=== PATIENT | male | born 1960 | race Caucasian/White ===

== ENCOUNTER 2018-11-30 05:33 | Day surgery (SDC) | payer BC ==
[~2018-11-30] VITALS: Ht 180.3 cm; Wt 119.5 kg
[~2018-11-30 05:33] MED LIST: HCTZ 25MG TAB25 MG PO
[2018-11-30 05:59] VITALS: BP 133/62; PULSE 99; TEMP 97.9
[2018-11-30] MEDS ORDERED: FLOMAX 0.40.4 MG/CAP PO ×2 (06:08→09:01)
[2018-11-30] MEDS ORDERED: CELEBREX 200MG200 MG PO (06:08)
[2018-11-30] MEDS ORDERED: GLUCOPHAGE XR500 M1 PO (06:09)
[2018-11-30] MEDS ORDERED: LIPITOR 40MG TA40 MG PO (06:10)
[2018-11-30] MEDS ORDERED: ASPIRIN 81M81 MG/TA2 PO (06:11)
[2018-11-30 08:45] VITALS: BP 133/80; PULSE 77
--- NOTE | 2018-11-30 08:45 | NUR ---
Patient returns to room 7 per cart from PACU and is awake and alert. IV fluids infusing and patient denies pain or nausea. Temp 97.9 and sats 95% on 2L per nasal cannual. States that he is needing up to the bathroom and ambulated across the hallway. Gait steady. Patient able to void pink tinged urine and returns to room. Siderails up x2 and call light in reach. Taking sips of water.
[2018-11-30 09:00] VITALS: BP 126/73; PULSE 80
[2018-11-30] MEDS ORDERED: CIPRO 500MG TA500 MG PO (09:00)
--- NOTE | 2018-11-30 09:00 | NUR ---
Resting and sipping on water.
[2018-11-30] MEDS ORDERED: NORCO 325 MG-51 TAB PO (09:01)
[2018-11-30 09:03] VITALS: TEMP 97.9
--- NOTE | 2018-11-30 09:15 | NUR ---
Patient sitting on edge of cart eating toast and denies pain or nausea. States that he does have some burning with urination. Denies need for pain medication.
[2018-11-30 09:16] VITALS: BP 128/73; PULSE 82
[2018-11-30 09:30] VITALS: BP 134/80; PULSE 88
--- NOTE | 2018-11-30 09:30 | NUR ---
IV discontinued and dresses self. Spouse in room.
--- NOTE | 2018-11-30 09:50 | NUR ---
Dismissal instructions signed and both patient and spouse verbalize understanding of these. Given scripts for Cipro, Flomax, and Bud. Instructed to take otc laxative to avoid constipation.
--- NOTE | 2018-11-30 09:55 | NUR ---
Patient dismissed to home driven by spouse and taken to the front door per wheelchair by Asha URBAN with instructions in hand.
== END 2018-11-30 09:55 | disposition home or self-care (01) ==
LOC: SDCO 05:33
DX: N20.0 Calculus of kidney (principal); I10 Essential (primary) hypertension; Z87.442 Personal history of urinary calculi; Z82.49 Family history of ischemic heart disease and other diseases of the circulatory system; Z88.0 Allergy status to penicillin; Z79.82 Long term (current) use of aspirin; Z79.899 Other long term (current) drug therapy; G47.33 Obstructive sleep apnea (adult) (pediatric); E11.9 Type 2 diabetes mellitus without complications; Z79.84 Long term (current) use of oral hypoglycemic drugs; E66.01 Morbid (severe) obesity due to excess calories
CPT/HCPCS: C1769; C2617; J0690; J1100; J2405; J2704; J3010; J7120; Q9967

== ENCOUNTER → 2019-08-22 | Outpatient (CLI) | payer BC ==
[~2019-08-22] MED LIST changes: +ASPIRIN 81M81 MG/TA2 PO; +CELEBREX 200MG200 MG PO; +CIPRO 500MG TA500 MG PO; +FLOMAX 0.40.4 MG/CAP PO; +GLUCOPHAGE XR500 M1 PO; +LIPITOR 40MG TA40 MG PO; +NORCO 325 MG-51 TAB PO
== END ==
LOC: COL.LAB 10:37
DX: Z01.812 Encounter for preprocedural laboratory examination (principal)

== ENCOUNTER 2020-12-20 05:29 | Inpatient (IN) | payer BC ==
[~2020-12-20] VITALS: Ht 180.3 cm; Wt 127.3 kg
[2020-12-20] VITALS (10 sets, daily range): BP systolic 120–153; BP diastolic 69–90; PULSE 64–100; TEMP 98–98.4
[2020-12-20 12:27] LABS: BASO % 0.3 % (0.0-2.0); EOS % 0.5 % (0-4.0); GRAN # 5.5 (1.4-6.5); GRAN % 62.2 % (42.2-75.2); HEMOGLOBIN 11.2 g/dl (13.5-18.0); LYMPH # 1.8 (1.2-3.4); LYMPH % 20.3 % (20.0-51.0); MEAN CELL VOLUME 92 fl (80.0-100.0); MEAN CORPUSCULAR HEMOGLOBIN 30 pg (27.0-31.0); MEAN CORPUSCULAR HGB CONC 32 g/dl (33.0-37.0); MEAN PLATELET VOLUME 9.9 fl (7.4-10.4); MONO # 1.4 (0.1-0.6); MONO % 15.9 % (1.7-9.3); PLATELET COUNT 274 K/mm3 (130-400); RED BLOOD COUNT 3.78 M/mm3 (4.20-5.60); REDCELL DISTRIBUTION WIDTH-CV 13.7 % (11.5-14.5)
[2020-12-20 12:30] LABS: HEMATOCRIT 34.9 % (42.0-52.0)
[2020-12-20 12:34] LABS: INR 1.3 (0.8-3.0); PROTHROMBIN TIME 14.1 SECONDS (9.7-12.8)
[2020-12-20 12:40] LABS: ALBUMIN 3.9 gm/dL (3.5-5.0); BILIRUBIN,TOTAL 0.6 mg/dL (0.0-1.0); C-REACTIVE PROTEIN 6.5 mg/dL (0.0-0.9); CALCIUM 8.5 mg/dL (8.4-10.2); CREATININE, serum 1.06 (0.66-1.25); POTASSIUM 4.7 mmol/L (3.4-5.0); TOTAL PROTEIN 7.8 gm/dL (6.4-8.2)
[2020-12-20 12:48] LABS: ERYTHROCYTE SEDIMENTATION RATE 101 mm/hr (0-30)
[2020-12-20] MEDS ORDERED: COZAAR 50MG50 MG/TAB PO (15:07)
[2020-12-20] MEDS ORDERED: CENTRUM SILVER1 CTB PO (15:09)
[2020-12-20] MEDS ORDERED: NATURE'S BLEND500 M1 PO (15:09)
--- NOTE | 2020-12-20 17:38 | NUR ---
Contacted Mary MONTOYA for Insulin orders and medicaiton orders.
--- NOTE | 2020-12-20 18:44 | NUR ---
Patient doing well throughout the day. Justin willard and SCDs to BLE. Patient denies pain at this time. Will report off to corporate driver.
--- NOTE | 2020-12-20 20:00 | NUR ---
Pt. sitting up in bed watching TV at this time. Pt. is A&OX3, assessment complete. INT to lt. ac patent. Pt. denies pain to rt. hip at this time. Call light within reach.
[2020-12-21 04:45] VITALS: BP 150/78; PULSE 90; TEMP 98.5
[2020-12-21 07:37] VITALS: BP 165/93; PULSE 98; TEMP 98.3
[2020-12-21 11:09] VITALS: BP 144/84; PULSE 94; TEMP 98
--- NOTE | 2020-12-21 14:26 | NUR ---
SW met with patient to complete intake. Patient states that he lives in [place] with Claudia [phone], does not utilize DME, and is independent with ADL's. Patient provides that his PCP is Dom, and pharmacy is [facility], does not have a DPOA-HC and does not wish to appoint anyone at this time. Patient states that he plans to return to his home up [place], and has no concerns with doing so. SW will continue to follow. DC plan: Home/[place]
[2020-12-21 15:47] VITALS: BP 144/84; PULSE 97; TEMP 98.3
[2020-12-21 15:59] LABS: COLLECTION METHOD CATHETER
[2020-12-21 16:06] LABS: MUCOUS Present /lpf; PH 5 (5-8); SQUAMOUS EPITHELIAL None Seen /hpf; URINE APPEARANCE Clear; URINE BACTERIA None Seen /hpf; URINE BILIRUBIN Negative (NEGATIVE); URINE BLOOD Negative (NEGATIVE); URINE COLOR Yellow; URINE GLUCOSE Negative (NEGATIVE); URINE KETONE Negative (NEGATIVE); URINE LEUKOCYTE ESTERASE Negative (NEGATIVE); URINE NITRATE Negative (NEGATIVE); URINE PROTEIN(semi-quant) Negative (NEGATIVE); URINE RBC None Seen /hpf; URINE UROBILINOGEN Negative (NEGATIVE)
--- NOTE | 2020-12-21 18:15 | NUR ---
Patient has been doing well today. He is aware he is NPO after midnight for surgery tomorrow. He took pain medication once today. Asked if he wanted something this evening he said no. No complaints of nausea. He stated his pain increases with movement. His has been at bedside. He had some labs and other tests done for pre-op work up. Hospitalist notified of consult. No other changes at this time. Call light within reach.
[2020-12-21 19:36] VITALS: BP 134/70; PULSE 104; TEMP 98.4
--- NOTE | 2020-12-21 19:50 | NUR ---
Pt. sitting up in bed. Pt. is A&OX3, assessment complete. INT to lt. ac patent. Pt. reports pain to rt. hip at a 5 on pain scale. Pt. denies further needs, call light within reach.
[2020-12-21 23:42] VITALS: BP 127/79; PULSE 91; TEMP 98.3
[2020-12-22] VITALS (10 sets, daily range): BP systolic 97–157; BP diastolic 47–86; PULSE 85–100; TEMP 97–98.3
[2020-12-22 06:32] LABS: CALCIUM 8.9 mg/dL (8.4-10.2); CREATININE, serum 0.91 (0.66-1.25); POTASSIUM 3.9 mmol/L (3.4-5.0)
[2020-12-22 06:34] LABS: BASO % 0.3 % (0.0-2.0); EOS # 0.2 (0.0-0.7); EOS % 2.4 % (0-4.0); GRAN # 6.1 (1.4-6.5); GRAN % 63.4 % (42.2-75.2); HEMOGLOBIN 11.4 g/dl (13.5-18.0); LYMPH # 1.7 (1.2-3.4); LYMPH % 17.2 % (20.0-51.0); MEAN CELL VOLUME 95 fl (80.0-100.0); MEAN CORPUSCULAR HEMOGLOBIN 30 pg (27.0-31.0); MEAN CORPUSCULAR HGB CONC 31 g/dl (33.0-37.0); MEAN PLATELET VOLUME 10.1 fl (7.4-10.4); MONO # 1.5 (0.1-0.6); MONO % 15.6 % (1.7-9.3); PLATELET COUNT 264 K/mm3 (130-400); RED BLOOD COUNT 3.84 M/mm3 (4.20-5.60); REDCELL DISTRIBUTION WIDTH-CV 13.9 % (11.5-14.5)
[2020-12-22 06:35] LABS: HEMATOCRIT 36.6 % (42.0-52.0)
--- NOTE | 2020-12-22 08:20 | NUR ---
Patient in bed resting. Alert and oriented x 3. Assessment complete. Denies pain at this time. Justin hose and SCDS to BLE. Denies additional needs at this time.
--- NOTE | 2020-12-22 12:59 | NUR ---
Initial visit; Patient and his thanked Head Of Quality for looking in on Sancho and offering encouragement, God's blessings and prayer. Head Of Quality will follow up.
--- NOTE | 2020-12-22 13:50 | NUR ---
Patient to OR by bed.
--- NOTE | 2020-12-22 18:46 | NUR ---
Reported off to district director.
[2020-12-22 21:30] LABS: HEMATOCRIT 31.9 % (42.0-52.0); HEMOGLOBIN 10.1 g/dl (13.5-18.0)
--- NOTE | 2020-12-22 22:00 | NUR ---
Arrived on unit from PACU, report received from Sallie QUILES PACU, patient is awake, alert, oriented x 4, drowsy, VS stable, CPAP put on by RT, tolerating well, Dressing to R hip c/d/i, patient c/o being cool- heated room and heated blankets applied, MYRANDA hose and SCDs in use, abductor pillow in use, bilateral pedal pulses WNL, ford draining yellow urine to bag per gravity, updated patient on plan of care.
[2020-12-23] VITALS (8 sets, daily range): BP systolic 77–127; BP diastolic 44–67; PULSE 88–112; TEMP 97.7–98.6
[2020-12-23 06:43] LABS: MEAN CELL VOLUME 94 fl (80.0-100.0); MEAN CORPUSCULAR HGB CONC 32 g/dl (33.0-37.0); MEAN PLATELET VOLUME 10.2 fl (7.4-10.4); PLATELET COUNT 220 K/mm3 (130-400); RED BLOOD COUNT 3.11 M/mm3 (4.20-5.60); REDCELL DISTRIBUTION WIDTH-CV 14.3 % (11.5-14.5)
[2020-12-23 06:49] LABS: HEMATOCRIT 29.3 % (42.0-52.0); HEMOGLOBIN 9.3 g/dl (13.5-18.0); MEAN CORPUSCULAR HEMOGLOBIN 30 pg (27.0-31.0)
[2020-12-23 06:59] LABS: CALCIUM 7.5 mg/dL (8.4-10.2); CREATININE, serum 1.25 (0.66-1.25); POTASSIUM 4.4 mmol/L (3.4-5.0)
[2020-12-23 07:45] LABS: BAND 25 % (0-10); EOSINOPHIL 1 % (0-4); LYMPHOCYTE 16 % (20.0-51.0); METAMYELOCYTE 1 % (0-0); NEUTROPHILS 45 % (42.0-75.2)
[2020-12-23 07:46] LABS: PLATELET ESTIMATE NORMAL (NORMAL)
--- NOTE | 2020-12-23 08:44 | NUR ---
Maryann whitman for picc line placement
--- NOTE | 2020-12-23 09:53 | NUR ---
Patient in bed resting. Alert and oriented x 3. Assessment complete. States pain 8/10 since working with PT. Medications given per orders. PICC line placed to PRISCILLA. Fluids infusing at this time. Justin willard and SCDS to BLE. Denies further needs at this time.
--- NOTE | 2020-12-23 12:30 | NUR ---
PATIENT NOTED HYPOTENSION IN THE 70'S SYSTOLIC, B/P CHECKED 4 TIMES. HOB LOWERED. PATIENT IS PALE IN COLOR AND REPORTS HE RECENTLY SAT AT THE EDGE OF BED AND GOT DIZZY. RN NOTIFIED.
--- NOTE | 2020-12-23 13:44 | NUR ---
Notified Isaura MONTOYA of continued low BP, additional fluid bolus ordered and initiated.
--- NOTE | 2020-12-23 18:10 | NUR ---
Patient doing well this afternoon. Repositioned in bed as patient tolerated. Abductor remains in place while patient in bed. Fluids continue infusing per orders. Denies needs at this time. Will report off to gas load dispatcher.
[2020-12-24] VITALS (7 sets, daily range): BP systolic 97–143; BP diastolic 51–71; PULSE 65–111; TEMP 97.7–99.2
--- NOTE | 2020-12-24 05:19 | NUR ---
Resting quietly, no s/s of hypo/hyper glycemia, VS stable, dressing to R hip c/d/i. NWB to R leg, updated on plan of care.
[2020-12-24 05:53] LABS: MEAN CELL VOLUME 92 fl (80.0-100.0); MEAN CORPUSCULAR HGB CONC 32 g/dl (33.0-37.0); MEAN PLATELET VOLUME 10.6 fl (7.4-10.4); PLATELET COUNT 192 K/mm3 (130-400); RED BLOOD COUNT 2.76 M/mm3 (4.20-5.60); REDCELL DISTRIBUTION WIDTH-CV 14.2 % (11.5-14.5)
[2020-12-24 05:55] LABS: HEMATOCRIT 25.4 % (42.0-52.0); HEMOGLOBIN 8.1 g/dl (13.5-18.0); MEAN CORPUSCULAR HEMOGLOBIN 29 pg (27.0-31.0)
[2020-12-24 06:06] LABS: CALCIUM 7.8 mg/dL (8.4-10.2); CREATININE, serum 1.01 (0.66-1.25); POTASSIUM 3.9 mmol/L (3.4-5.0)
[2020-12-24 06:17] LABS: BAND 2 % (0-10); EOSINOPHIL 3 % (0-4); LYMPHOCYTE 20 % (20.0-51.0); NEUTROPHILS 59 % (42.0-75.2); PLATELET ESTIMATE NORMAL (NORMAL)
--- NOTE | 2020-12-24 07:00 | NUR ---
Report received from KB Molina. PT in bed resting, denies needs, will continue to monitor.
--- NOTE | 2020-12-24 08:50 | NUR ---
Pt has large aquacels to R hip that have some drainage. PICC to PRISCILLA with IVF nad antibiotics infusing. Denies pain. In chair with assistance of PT and able to maintain NWB status to RLE. Elvas needs, eating well.02 at 2L NC. Will continue to monitor.
--- NOTE | 2020-12-24 09:48 | NUR ---
Follow-up visit; Patient thanked Marketing Communications Coordinator for looking in on him and wishing him a good day.
--- NOTE | 2020-12-24 10:28 | NUR ---
PT is recommending SNF or SB. The patient has [facility]. SW met with the patient to review d/c plan and to discuss PT's recommendation. The patient reports that that she lives in [place] with his , Nova. The patient reports that he would be interested in post-acute rehab and would prefer IPR. He was open for SW to send a referral to [facility]. JIMMY consulted IPR director, Leeann. JIMMY faxed a referral to Paulina at [facility]. Awaiting screens. JIMMY attempted to contact the patient's , Nova, to update. The phone number would not ring.
--- NOTE | 2020-12-24 16:00 | NUR ---
The patient's , Nova, returned JIMMY's phone call. JIMMY updated Nova about therapy's recommendation for rehab and how JIMMY sent referrals to our [facility] and [facility]. Nova was in agreement to rehab. She states that she would prefer a local facility and was interested in JIMMY sending a referral to [facility]. JIMMY contacted and faxed a referral to Law at [facility]. Law reports that [facility] does not have any skilled benefits and that they will have to decline the patient. JIMMY to update the patient and his .
--- NOTE | 2020-12-24 18:06 | NUR ---
Pt has rested off and on most of afternoon. PRN pain meds given per request over shift. REsting in bed, denies needs, taking PO well. Will give bedisde shift report to nightshift nurse who will resume care.
--- NOTE | 2020-12-24 19:00 | NUR ---
RECEIVED CHANGE OF SHIFT REPORT FROM DAY SHIFT NURSE.
[2020-12-25] VITALS (14 sets, daily range): BP systolic 104–151; BP diastolic 46–91; PULSE 22–125; TEMP 97.7–98.9
--- NOTE | 2020-12-25 | NUR ---
PATIENT SLEEPING, DOES NOT WAKE WHEN STAFF NURSE ENTER ROOM ON ROUNDS. PICC IN PLACE, SALINE LOCKED. OXYGEN PER NC. DENIED CHEST PAIN/SOA. DENIED NUMBNESS/TINGLING TO EXTREMITIES. WORE SCDs FOR ABOUT AN HOUR THEN WANTED SCDs OFF SO FAR THIS SHIFT.
--- NOTE | 2020-12-25 07:25 | NUR ---
CHANGE OF SHIFT GIVEN TO DAY SHIFT NURSE, JULIA QUILES. PATIENT VOMITED SEVERAL TIMES OF SMALL MUCOUS LIKE BROWNISH EMESIS THAT WAS NOT RESOLVED WITH ZOFRAN. MENDING CARRIER PROVIDER INFORMED OF UNRESOLVED N/V WITH ORDER GIVEN. PHENERGAN INFUSION GIVEN PER PICC.
[2020-12-25 07:26] LABS: MEAN CELL VOLUME 93 fl (80.0-100.0); MEAN CORPUSCULAR HGB CONC 32 g/dl (33.0-37.0); MEAN PLATELET VOLUME 10.7 fl (7.4-10.4); PLATELET COUNT 254 K/mm3 (130-400); RED BLOOD COUNT 2.58 M/mm3 (4.20-5.60)
[2020-12-25 07:33] LABS: CALCIUM 8.2 mg/dL (8.4-10.2); CREATININE, serum 0.89 (0.66-1.25); POTASSIUM 3.8 mmol/L (3.4-5.0)
[2020-12-25 07:34] LABS: HEMATOCRIT 23.9 % (42.0-52.0); HEMOGLOBIN 7.7 g/dl (13.5-18.0); MEAN CORPUSCULAR HEMOGLOBIN 30 pg (27.0-31.0)
[2020-12-25 07:44] LABS: C-REACTIVE PROTEIN 15.9 mg/dL (0.0-0.9)
[2020-12-25 08:05] LABS: GASTROCCULT POSITIVE; pH GASTRIC CONTENTS 1
[2020-12-25 09:07] LABS: LYMPHOCYTE 5 % (20.0-51.0); METAMYELOCYTE 2 % (0-0); MYELOCYTE 2 % (0-0); NEUTROPHILS 79 % (42.0-75.2); PLATELET ESTIMATE NORMAL (NORMAL)
[2020-12-25 09:08] LABS: HYPOCHROMIA 2+
--- NOTE | 2020-12-25 11:30 | NUR ---
While getting shift report this am at 0700 patient was vomiting dark brown/red emesis. Night RN had reported this to overnight hospitalist. Spoke with the hospitalist this am and sent emesis for gastroccult. Dr Berry has been consulted and patient is going for EGD. He has been vomiting every 30-45 mins and is dry heaving. The emesis is getting nutrition coordinator. Notified his of the situation. IVF's sent as ordered. Consent signed and on the chart. Patient is going off the floor via bed. No other changes at this time.
--- NOTE | 2020-12-25 12:45 | NUR ---
Patient is back from his procedure. NG tube in place. NG to LIS as ordered. Dark brown contents returned. Patients denies nausea at this time. Stated his pain is minimal. He wanted me to update his again. explained he can not eat or drink but can have sips of water to moisten his mouth. No other changes at this time. Call light within reach.
[2020-12-25 13:20] LABS: HEMATOCRIT 22.4 % (42.0-52.0); HEMOGLOBIN 7.5 g/dl (13.5-18.0)
--- NOTE | 2020-12-25 18:30 | NUR ---
Patient is doing better this afternoon. His NG continues to be hooked up to LIS. Light brown content returned. IVF's infusing as ordered. Patient denies nausea. Minimal complaints of pain to right hip. MYRANDA willard and SCD's on to BLE. Oral pills on hold at this time. No other changes at this time. Call jerry garcia.
--- NOTE | 2020-12-25 20:19 | NUR ---
Noted pulse of 125, Call placed to Ashley Dobson EDITOR TRADE JOURNAL to notify, NON: EKG now, initiate telemetry. Updated patient on plan of care.
--- NOTE | 2020-12-25 20:30 | NUR ---
Call placed to Ashley Dobson FAN ENGINE ENGINEER- reviewed EKG results, NON: H&H now. Updated patient
[2020-12-25 20:59] LABS: HEMATOCRIT 23.2 % (42.0-52.0); HEMOGLOBIN 7.2 g/dl (13.5-18.0)
[2020-12-26] VITALS (9 sets, daily range): BP systolic 116–142; BP diastolic 52–64; PULSE 66–114; TEMP 97.9–99.1
--- NOTE | 2020-12-26 04:19 | NUR ---
Resting quietly, no c/o pain, uses urinal w/o issue, no s/s of hypo/hyper glycemia, NG tube to LIS with brown drainage, VS stable, tachy on tele at 114, will continue to monitor.
[2020-12-26 07:05] LABS: MEAN CELL VOLUME 96 fl (80.0-100.0); MEAN CORPUSCULAR HGB CONC 32 g/dl (33.0-37.0); MEAN PLATELET VOLUME 10.7 fl (7.4-10.4); PLATELET COUNT 255 K/mm3 (130-400); RED BLOOD COUNT 2.24 M/mm3 (4.20-5.60); REDCELL DISTRIBUTION WIDTH-CV 14.4 % (11.5-14.5)
[2020-12-26 07:18] LABS: HEMATOCRIT 21.6 % (42.0-52.0); HEMOGLOBIN 6.8 g/dl (13.5-18.0); MEAN CORPUSCULAR HEMOGLOBIN 30 pg (27.0-31.0)
[2020-12-26 07:29] LABS: CALCIUM 8.3 mg/dL (8.4-10.2); CREATININE, serum 0.87 mg/dL (0.72-1.25); POTASSIUM 3.7 mmol/L (3.5-4.5)
[2020-12-26 07:53] LABS: BAND 25 % (0-10); LYMPHOCYTE 9 % (20.0-51.0); MYELOCYTE 1 % (0-0); NEUTROPHILS 52 % (42.0-75.2); NUCLEATED RED BLOOD CELL 1 (0-6)
[2020-12-26 07:54] LABS: HYPOCHROMIA 2+
[2020-12-26 07:55] LABS: PLATELET ESTIMATE NORMAL (NORMAL)
--- NOTE | 2020-12-26 08:46 | NUR ---
Vancomycin Follow-up Pharmacy Note Current regimen: VANCOMYCIN 1.5 G Q12H Vancomycin trough: 8 Adjustments: INCREASE TO 1.75G Q12H. PT WITH OBESITY AND PRE-DM, INCREASE SLOWLY DUE TO RISK OF ACCUMULATION
--- NOTE | 2020-12-26 11:30 | NUR ---
Ortho plans to take the patient back to the OR for a procedure next Tuesday. JIMMY notified Leeann with [facility] and Paulina at [facility].
--- NOTE | 2020-12-26 12:38 | NUR ---
Blood transfusion initiated per orders. This nurse remained in for for initial 15 minutes of transfusion. VSS. Bed bath provided at this time. Denies further needs at this time.
--- NOTE | 2020-12-26 13:38 | NUR ---
Patient sitting up in recliner. Denies pain or needs at this time.
[2020-12-26 16:26] LABS: HEMATOCRIT 24.1 % (42.0-52.0); HEMOGLOBIN 7.7 g/dl (13.5-18.0)
--- NOTE | 2020-12-26 19:20 | NUR ---
Patient doing well throughout the day. Has been up to recliner for lunch. Transfered back to bed with x2 assist and walker. Dressing to right hip changed to new aquacell dressing. Denies needs at this time. Will report off to manufacturing shift supervisor.
--- NOTE | 2020-12-27 02:47 | NUR ---
Patient changed and cleaned, linens changed, secured NG tube w/o issue, removed leodan hose and currently has SCDs in use, call chavez w/i reach, BLE elevated, dressing to R hip c/d/i with drainage noted under aquacell, telemetry patches changed, O2@3L per oxymask, patient denies pain, will continue to monitor.
[2020-12-27 04:08] VITALS: BP 135/60; PULSE 66; TEMP 98.9
[2020-12-27 07:16] LABS: MEAN CELL VOLUME 93 fl (80.0-100.0); MEAN CORPUSCULAR HGB CONC 31 g/dl (33.0-37.0); MEAN PLATELET VOLUME 10.3 fl (7.4-10.4); PLATELET COUNT 235 K/mm3 (130-400); RED BLOOD COUNT 2.47 M/mm3 (4.20-5.60); REDCELL DISTRIBUTION WIDTH-CV 15.3 % (11.5-14.5)
[2020-12-27 07:21] LABS: HEMOGLOBIN 7.2 g/dl (13.5-18.0); MEAN CORPUSCULAR HEMOGLOBIN 29 pg (27.0-31.0)
[2020-12-27 07:32] VITALS: BP 138/64; PULSE 106; TEMP 98.5
[2020-12-27 07:38] LABS: CALCIUM 8.5 mg/dL (8.4-10.2); CREATININE, serum 0.79 mg/dL (0.72-1.25); POTASSIUM 3.7 mmol/L (3.5-4.5)
--- NOTE | 2020-12-27 08:00 | NUR ---
Patient in bed resting. Alert and oriented x 3. Assessment complete. Denies pain at this time. NG to LIS with yellow drainage present. Aquacell to right hip with bloody drainage present. PICC line to PRISCILLA without complications. x2 assist to recliner. Patient denies further needs at this time.
[2020-12-27 11:37] VITALS: BP 137/64; PULSE 101; TEMP 98.8
[2020-12-27 15:11] VITALS: BP 144/59; PULSE 102; TEMP 98.9
--- NOTE | 2020-12-27 16:06 | NUR ---
Contacted Dr. Benítez, patient NG clamped for 4 hrs, residual of 10 ml. Ok to advance to CL diet.
--- NOTE | 2020-12-27 18:25 | NUR ---
Patient doing well throughout the day. Denies pain at this time. Up to recliner this AM. Fluids infusing per orders to PRISCILLA PICC line. Aquacell dressing to right hip saturated. Placed abds and foam tape dressing. Patient denies needs at this time. Will repor toff to livestock farmworker.
[2020-12-27 20:32] VITALS: BP 148/68; PULSE 104; TEMP 98.7
[2020-12-28] VITALS (15 sets, daily range): BP systolic 120–155; BP diastolic 58–96; PULSE 84–106; TEMP 97.6–99
--- NOTE | 2020-12-28 06:14 | NUR ---
LAB DRAWN FROM [facility]. NO REQUESTS FOR PRN PAIN MEDICATION. RESTING QUIETLY, CALL LIGHT IN REACH.
[2020-12-28 07:19] LABS: MEAN CELL VOLUME 96 fl (80.0-100.0); MEAN CORPUSCULAR HGB CONC 31 g/dl (33.0-37.0); MEAN PLATELET VOLUME 10.7 fl (7.4-10.4); PLATELET COUNT 252 K/mm3 (130-400); RED BLOOD COUNT 2.41 M/mm3 (4.20-5.60); REDCELL DISTRIBUTION WIDTH-CV 15.2 % (11.5-14.5)
[2020-12-28 07:27] LABS: HEMATOCRIT 23.1 % (42.0-52.0); HEMOGLOBIN 7.2 g/dl (13.5-18.0); MEAN CORPUSCULAR HEMOGLOBIN 30 pg (27.0-31.0)
[2020-12-28 07:38] LABS: CALCIUM 8.1 mg/dL (8.4-10.2); CREATININE, serum 0.74 mg/dL (0.72-1.25); POTASSIUM 3.5 mmol/L (3.5-4.5)
[2020-12-28 09:19] LABS: ANISOCYTOSIS 1+; BAND 1 % (0-10); HYPOCHROMIA 2+; LYMPHOCYTE 16 % (20.0-51.0); NEUTROPHILS 65 % (42.0-75.2); PLATELET ESTIMATE NORMAL (NORMAL)
--- NOTE | 2020-12-28 19:15 | NUR ---
RECEIVED CHANGE OF SHIFT REPORT FROM DAY SHIFT NURSE. TELE AND PICC LINE IN PLACE. PATIENT TOLERATING FULL LIQUID DIET AT THIS TIME. PATIENT CONTINUES WITH DECREASED ROM/STRENGTH TO RLE DUE TO RECENT HIP SURGERY, SCHEDULED TO HAVE ANOTHER SPACER PLACED TO R HIP AREA THIS COMING TUESDAY. PATIENT DENIES ANY NEEDS AT TIME OF REPORT. DENIES CHEST PAIN/SOA AND DENIES NUMBNESS/TINGLING TO EXTREMITIES AT THIS TIME.
[2020-12-29] VITALS (10 sets, daily range): BP systolic 123–161; BP diastolic 53–77; PULSE 86–97; TEMP 98.1–98.9
--- NOTE | 2020-12-29 00:30 | NUR ---
BLOOD TRANSFUSING WITH NO PRBLEMS OR COMPLAINTS. DENIES CHEST PAIN/SOA/LOW BACK PAIN. IV SITE REMAINS CLEAR, PATIENT'S SKIN COLOR NORMAL/ LIPS PINK. PATIENT SATURATIONS DROPS WITH SLEEPING, OXYGEN PER NC AT 1LPM AT THIS TIME. BLOOD TRANSFUSION RATE INCREASED TO 100ML/HR AT THIS TIME.
--- NOTE | 2020-12-29 02:34 | NUR ---
BLOOD TRANSFUSING WITH NO COMPLAINTS OF CHEST PAIN/SOA/CHILLS/LOW BACK PAIN/ABD PAIN/NAUSEA WITH TRANSFUSION AT THIS TIME. OXYGEN CONTINUES PER NASAL CANNULA AT 1 LPM.
[2020-12-29 06:56] LABS: MEAN CORPUSCULAR HGB CONC 33 g/dl (33.0-37.0); MEAN PLATELET VOLUME 10.4 fl (7.4-10.4); PLATELET COUNT 251 K/mm3 (130-400); RED BLOOD COUNT 2.92 M/mm3 (4.20-5.60); REDCELL DISTRIBUTION WIDTH-CV 15.1 % (11.5-14.5)
[2020-12-29 06:59] LABS: HEMATOCRIT 26.7 % (42.0-52.0); HEMOGLOBIN 8.7 g/dl (13.5-18.0); MEAN CELL VOLUME 91 fl (80.0-100.0); MEAN CORPUSCULAR HEMOGLOBIN 30 pg (27.0-31.0)
--- NOTE | 2020-12-29 07:22 | NUR ---
CHANGE OF SHIFT REPORT GIVEN TO DAY SHIFT NURSE, JULIA QUILES.
[2020-12-29 07:27] LABS: CREATININE, serum 0.74 mg/dL (0.72-1.25); POTASSIUM 3.2 mmol/L (3.5-4.5)
[2020-12-29 07:40] LABS: BAND 18 % (0-10); EOSINOPHIL 4 % (0-4); LYMPHOCYTE 14 % (20.0-51.0); METAMYELOCYTE 2 % (0-0); MYELOCYTE 5 % (0-0); NEUTROPHILS 48 % (42.0-75.2); NUCLEATED RED BLOOD CELL 1 (0-6)
[2020-12-29 07:41] LABS: HYPOCHROMIA 1+; MICROCYTOSIS 1+; PLATELET ESTIMATE NORMAL (NORMAL)
--- NOTE | 2020-12-29 18:44 | NUR ---
Patient has been doing well today. Minimal complaints of pain, no complaints of nausea. He sat up in the chair for a short while this morning but did not tolerate it for long. He is aware he can not eat or drink after midnight. He had a very small BM this morning, there was some dark red old blood in his stool. He asked about it, explained that it is from the GI bleed he had last week. He verbalized understanding. No other changes at this time. Call light within reach.
--- NOTE | 2020-12-29 18:45 | NUR ---
RECEIVED CHANGE OF SHIFT REPORT FROM DAY SHIFT NURSE.
--- NOTE | 2020-12-29 22:19 | NUR ---
REFUSED SCHEDULED TYLENOL EXTRA STRENGTH, REPORTS STILL HAS NO PAIN AT THIS TIME.
[2020-12-30] VITALS (16 sets, daily range): BP systolic 98–151; BP diastolic 53–93; PULSE 86–110; TEMP 97.9–99.3
--- NOTE | 2020-12-30 00:01 | NUR ---
HAD WORN SCD FOR SHORT PERIOD OF TIME PRIOR TO HS CARE AND DOES NOT WEAR MYRANDA DUE TO NO SIZE THAT FITS PATIENT.
--- NOTE | 2020-12-30 06:49 | NUR ---
CHANGE OF SHIFT REPORT GIVEN TO DAY SHIFT NURSE, BRISA QUILES.
[2020-12-30 07:29] LABS: CALCIUM 7.8 mg/dL (8.4-10.2); CREATININE, serum 0.74 mg/dL (0.72-1.25); POTASSIUM 3.5 mmol/L (3.5-4.5)
[2020-12-30 07:39] LABS: MEAN CELL VOLUME 92 fl (80.0-100.0); MEAN CORPUSCULAR HGB CONC 32 g/dl (33.0-37.0); MEAN PLATELET VOLUME 10.6 fl (7.4-10.4); PLATELET COUNT 213 K/mm3 (130-400); RED BLOOD COUNT 3.01 M/mm3 (4.20-5.60); REDCELL DISTRIBUTION WIDTH-CV 14.9 % (11.5-14.5)
[2020-12-30 07:53] LABS: HEMATOCRIT 27.8 % (42.0-52.0); HEMOGLOBIN 8.9 g/dl (13.5-18.0); MEAN CORPUSCULAR HEMOGLOBIN 30 pg (27.0-31.0)
--- NOTE | 2020-12-30 08:00 | NUR ---
Patient in bed resting. Alert and oriented x 3. Assessment complete. Denies pain at this time. Dressing to right hip changed at this time. Bed bath provided. PICC to PRISCILLA without complications. Denies further needs at this time.
[2020-12-30 08:23] LABS: BAND 9 % (0-10); EOSINOPHIL 2 % (0-4); LYMPHOCYTE 9 % (20.0-51.0); METAMYELOCYTE 2 % (0-0); NEUTROPHILS 59 % (42.0-75.2); PLATELET ESTIMATE NORMAL (NORMAL)
--- NOTE | 2020-12-30 08:30 | NUR ---
Patient to OR by bed.
--- NOTE | 2020-12-30 14:25 | NUR ---
The patient went back to surgery today. IPR is following. SW to continue to follow.
--- NOTE | 2020-12-30 18:51 | NUR ---
RECEIVED CHANGE OF SHIFT REPORT FROM DAY SHIFT NURSE. BLOOD TRANSFUSING WITH NO PROBLEMS. DENIES CHEST PAIN/SOA,
[2020-12-31 03:40] VITALS: BP 116/62; PULSE 103; TEMP 98
--- NOTE | 2020-12-31 07:28 | NUR ---
CHANGE OF SHIFT REPORT GIVEN TO DAY SHIFT NURSE, DULCE QUILES.
[2020-12-31 08:00] VITALS: BP 132/58; PULSE 105; TEMP 98.4
[2020-12-31 08:48] LABS: MEAN CELL VOLUME 93 fl (80.0-100.0); MEAN CORPUSCULAR HGB CONC 32 g/dl (33.0-37.0); MEAN PLATELET VOLUME 10.5 fl (7.4-10.4); PLATELET COUNT 222 K/mm3 (130-400); RED BLOOD COUNT 3.09 M/mm3 (4.20-5.60); REDCELL DISTRIBUTION WIDTH-CV 16.4 % (11.5-14.5)
[2020-12-31 08:49] LABS: HEMATOCRIT 28.6 % (42.0-52.0); MEAN CORPUSCULAR HEMOGLOBIN 29 pg (27.0-31.0)
[2020-12-31 09:11] LABS: CALCIUM 7.3 mg/dL (8.4-10.2); CREATININE, serum 0.74 mg/dL (0.72-1.25)
[2020-12-31 09:22] LABS: BAND 11 % (0-10); EOSINOPHIL 4 % (0-4); LYMPHOCYTE 10 % (20.0-51.0); MYELOCYTE 2 % (0-0); NEUTROPHILS 63 % (42.0-75.2)
[2020-12-31 09:23] LABS: HYPOCHROMIA 1+; PLATELET ESTIMATE NORMAL (NORMAL)
[2020-12-31 11:05] VITALS: BP 132/60; PULSE 108; TEMP 98.3
--- NOTE | 2020-12-31 14:56 | NUR ---
Leeann, IPR Director, reports that she submitted for auth and has received authorization from the patient's insurance. JIMMY met with the patient to update. The patient is in agreement to going to [facility] upon discharge. SW attempted to contact and update his , Nova. Nova's voicemail is full and SW was unable to leave a message.
[2020-12-31 15:43] VITALS: BP 104/51; PULSE 109; TEMP 97.9
[2020-12-31 19:53] VITALS: BP 119/59; PULSE 79; TEMP 98
--- NOTE | 2020-12-31 20:00 | NUR ---
Pt. sitting up in bed at this time. Pt. is A&OX3, assessment complete. PICC to rt. upper arm patent. Pt. denies further needs, call light within reach.
[2020-12-31 23:21] VITALS: BP 128/60; PULSE 56; TEMP 98.4
[2021-01-01 03:28] VITALS: BP 122/60; PULSE 66; TEMP 98
--- NOTE | 2021-01-01 06:48 | NUR ---
Patient sleeping comfortably in bed. Call light and bedside table are within reach. Will continue to monitor patient throughout shift.
[2021-01-01 06:54] LABS: MEAN CELL VOLUME 94 fl (80.0-100.0); MEAN CORPUSCULAR HGB CONC 31 g/dl (33.0-37.0); MEAN PLATELET VOLUME 10.8 fl (7.4-10.4); PLATELET COUNT 250 K/mm3 (130-400); RED BLOOD COUNT 3.03 M/mm3 (4.20-5.60); REDCELL DISTRIBUTION WIDTH-CV 16.2 % (11.5-14.5)
[2021-01-01 06:58] LABS: HEMATOCRIT 28.6 % (42.0-52.0); HEMOGLOBIN 8.9 g/dl (13.5-18.0); MEAN CORPUSCULAR HEMOGLOBIN 29 pg (27.0-31.0)
[2021-01-01 07:27] VITALS: BP 125/52; PULSE 95; TEMP 97.7
--- NOTE | 2021-01-01 07:30 | NUR ---
Per JAN Villar. this nurse changed dressing and put on an aquacell. Ford were in tact with some drops of blood proximal to wound. Patient tolerated dressing change well. Patient has edema wilthh pitting to RLE with +1 pitting. Patient denies pain at this time. Call light and bedside table are within reach. Will continue to monitor patient at this time.
[2021-01-01 07:36] LABS: CALCIUM 7.8 mg/dL (8.4-10.2); CREATININE, serum 0.86 mg/dL (0.72-1.25)
[2021-01-01 07:53] LABS: BAND 11 % (0-10); EOSINOPHIL 1 % (0-4); LYMPHOCYTE 9 % (20.0-51.0); METAMYELOCYTE 2 % (0-0); MYELOCYTE 2 % (0-0); NEUTROPHILS 68 % (42.0-75.2)
[2021-01-01 07:55] LABS: HYPOCHROMIA 2+; PLATELET ESTIMATE NORMAL (NORMAL)
[2021-01-01 11:23] VITALS: BP 123/52; PULSE 104; TEMP 98.4
[2021-01-01 18:46] VITALS: BP 138/120; PULSE 110; TEMP 98
--- NOTE | 2021-01-01 21:20 | NUR ---
Pt. sitting up in bed. Pt. is A&OX3, assessment complete. PICC to rt. upper arm patent. Dressing to rt. hip CDI. Pt. denies pain or other needs, call light within reach.
[2021-01-01 23:21] VITALS: BP 120/63; PULSE 69; TEMP 97.9
[2021-01-02 06:48] LABS: MEAN CELL VOLUME 93 fl (80.0-100.0); MEAN CORPUSCULAR HGB CONC 31 g/dl (33.0-37.0); MEAN PLATELET VOLUME 10.6 fl (7.4-10.4); PLATELET COUNT 292 K/mm3 (130-400); RED BLOOD COUNT 2.96 M/mm3 (4.20-5.60)
[2021-01-02 06:55] LABS: HEMATOCRIT 27.6 % (42.0-52.0); HEMOGLOBIN 8.5 g/dl (13.5-18.0); MEAN CORPUSCULAR HEMOGLOBIN 29 pg (27.0-31.0)
[2021-01-02 07:06] LABS: CALCIUM 7.8 mg/dL (8.4-10.2); POTASSIUM 3.8 mmol/L (3.5-4.5)
--- NOTE | 2021-01-02 08:00 | NUR ---
Patient in bed resting. Alert and oriented x 3. Assessment complete. Denies pain at this time. Aquacell dressing to right hip with moderate drainage present. PICC line to PRISCILLA without complications. Patient denies further needs at this time.
[2021-01-02 08:02] LABS: BAND 11 % (0-10); EOSINOPHIL 1 % (0-4); HYPOCHROMIA 3+; LYMPHOCYTE 7 % (20.0-51.0); METAMYELOCYTE 1 % (0-0); MYELOCYTE 1 % (0-0); NEUTROPHILS 76 % (42.0-75.2); PLATELET ESTIMATE NORMAL (NORMAL)
[2021-01-02 09:13] VITALS: BP 121/60; PULSE 104; TEMP 98.2
[2021-01-02] MEDS ORDERED: ROCEPHIN 2GM VIAL21 IV (09:20)
[2021-01-02] MEDS ORDERED: VANCO 2 GR2 GM/500 M IV (09:21)
[2021-01-02] MEDS ORDERED: BIAXIN 500MG T500 MG PO (09:21)
[2021-01-02] MEDS ORDERED: AMOXICILLIN 50500 MG PO (09:21)
[2021-01-02] MEDS ORDERED: PROTONIX 40MG T40 MG PO (09:22)
[2021-01-02] MEDS ORDERED: MILK OF MA1200 MG/5 PO (09:22)
[2021-01-02] MEDS ORDERED: DULCOLAX S10 MG/SUPP RC (09:22)
[2021-01-02] MEDS ORDERED: SENNA-S 50 MG-81 TAB PO (09:23)
[2021-01-02] MEDS ORDERED: BD POSIFLUSH SF10 ML IV ×2 (09:23)
[2021-01-02] MEDS ORDERED: ROXICODONE 55 MG/TAB PO (09:24)
[2021-01-02] MEDS ORDERED: TYLENOL 500MG500 MG PO (09:24)
--- NOTE | 2021-01-02 09:52 | NUR ---
The patient is to discharge today, 01/02, to [facility]. SW contacted and updated the patient's , Nova. No additional needs at this time.
[2021-01-02 12:27] VITALS: BP 136/65; PULSE 103; TEMP 98
--- NOTE | 2021-01-02 13:00 | NUR ---
This student nurse attempted to assist the patient to the bathroom. Gait belt was placed on patient and successfully stood up. Patient became winded and stated "I don't think I'll be able to make it, I might need a bed mae." This student nurse assisted patient back onto chair and recieved a bedpan. This student nurse placed the bedpan underneath the patient and he was able to toilet successfully. Patient appeared to be experiencing diarrhea. Patient denies any stomach upset/pain. Patient resting in his recliner. Call light within reach and does not express any needs at this time.
--- NOTE | 2021-01-02 14:43 | NUR ---
Patient to IPR by wheelchair. Family at bedside.
[2021-01-02] MEDS ORDERED: NORCO 325 MG-7.1 TAB PO (16:14)
== END 2021-01-02 14:30 | DRG 466 ==
LOC: COL.ER 05:29 → SDCO 05:29 → SURG 11:42
PROVIDERS: Internal Medicine; Nurse Anesthetist, Certified Registered; Physician Assistant; ADMIT Orthopaedic Surgery
PROC: 0SR90EZ Replacement of Right Hip Joint with Articulating Spacer, Open Approach (ICD-10-PCS; 2020-12-22)
PROC: 0SP908Z Removal of Spacer from Right Hip Joint, Open Approach (ICD-10-PCS; principal; 2020-12-22 13:30)
PROC: 02HV33Z Insertion of Infusion Device into Superior Vena Cava, Percutaneous Approach (ICD-10-PCS; 2020-12-23)
PROC: 0DJ08ZZ Inspection of Upper Intestinal Tract, Via Natural or Artificial Opening Endoscopic (ICD-10-PCS; 2020-12-25)
DX: T84.020A Dislocation of internal right hip prosthesis, initial encounter (principal); K25.4 Chronic or unspecified gastric ulcer with hemorrhage; K31.1 Adult hypertrophic pyloric stenosis; T84.51XA Infection and inflammatory reaction due to internal right hip prosthesis, initial encounter; Y84.8 Other medical procedures as the cause of abnormal reaction of the patient, or of later complication, without mention of misadventure at the time of the procedure; D64.9 Anemia, unspecified; R09.02 Hypoxemia; E78.5 Hyperlipidemia, unspecified; G47.33 Obstructive sleep apnea (adult) (pediatric); N40.0 Benign prostatic hyperplasia without lower urinary tract symptoms; H55.01 Congenital nystagmus; R73.03 Prediabetes; E87.6 Hypokalemia; R00.0 Tachycardia, unspecified; I95.9 Hypotension, unspecified; Z20.822 Contact with and (suspected) exposure to COVID-19; K21.00 Gastro-esophageal reflux disease with esophagitis, without bleeding; K26.7 Chronic duodenal ulcer without hemorrhage or perforation
CPT/HCPCS: OP; 99223; 99232-AI; 99233-AI; 99239; A4314; A9284; C1713; C1751; C1776; C1892; C9113; J0330; J0696; J1650; J1815; J1885; J1940; J2250; J2270; J2370; J2405; J2550; J2704; J2795; J3010; J3260; J3370; J7030; J7040; J7050; P9016

== ENCOUNTER 2021-01-02 10:39 | Inpatient (IN) | payer BC ==
[~2021-01-02] VITALS: Ht 180.3 cm; Wt 99.7 kg
[~2021-01-02 10:39] MED LIST changes: +AMOXICILLIN 50500 MG PO; +BD POSIFLUSH SF10 ML IV; +BIAXIN 500MG T500 MG PO; +CENTRUM SILVER1 CTB PO; +COZAAR 50MG50 MG/TAB PO; +DULCOLAX S10 MG/SUPP RC; +MILK OF MA1200 MG/5 PO; +NATURE'S BLEND500 M1 PO; +PROTONIX 40MG T40 MG PO; +ROCEPHIN 2GM VIAL21 IV; +ROXICODONE 55 MG/TAB PO; +SENNA-S 50 MG-81 TAB PO; +TYLENOL 500MG500 MG PO; +VANCO 2 GR2 GM/500 M IV
--- NOTE | 2021-01-02 15:00 | NUR ---
PATIENT IS ALERT AND ORIENTED X4. AT BEDSIDE. PATIENT HAS AQUACELL TO RIGHT HIP AND PICC LINE TO UPPER RIGHT ARM. PATIENT HAS SCDS ON BILATERAL LOWER EXTREMITIES. PATIENT HAS RIGHT HIP ELEVATED ON PILLOW. PATIENT HAS 2L OXYGEN VIA OXYMASK. PATIENT DENIES PAIN OR FURTHER NEEDS AT THIS TIME. CALL LIGHT WITHIN REACH. HEAD TO TOE ASSESSMENT COMPLETE.
[2021-01-02 16:00] VITALS: BP 121/51; PULSE 105; TEMP 98.5
[2021-01-02] MEDS ORDERED: NORCO 325 MG-7.1 TAB PO (16:14)
[2021-01-02 16:28] VITALS: BP 121/51; PULSE 105; TEMP 98.5
--- NOTE | 2021-01-02 21:00 | NUR ---
PT RESTING IN BED. O2 2L MASK. FORGETS AND TAKES OFF AT TIMES. REMIND HIM TO KEEP ON. PT MORBIDLY OBESE. DEVON HAS OLD DRG NOTED TO RT HIP. USING URINAL TO VOID. CALL LIGHT IN REACH. BED ALARM SET.
[2021-01-03 05:17] VITALS: BP 116/60; PULSE 94; TEMP 98.6
--- NOTE | 2021-01-03 07:12 | NUR ---
Report received from KB Cherry. Patient is sleeping in bed. Call light and bedside table are within reach. Will continue to monitor patient throughout day.
--- NOTE | 2021-01-03 13:45 | NUR ---
Patient has completed all therapies and is sitting in WC. Call light and bedside table are within reach.
--- NOTE | 2021-01-03 14:08 | NUR ---
Plan is to return home with Nova . Patient report that he resides in [place] and goes to Dr. Fernandes at [facility]. Patient shares that he obtains medications at [facility], Patient shares he has a walker and can get around the first floor of his home. Patient shares that he has some concerns with obtaining his IV antibiotics after leaving because he will not be able to drive back and forth and works daily. Patient reports that he is open to Home health out of [place] with IV antibiotic supports. Educated on services through case managment and setup home health.
[2021-01-03 17:01] VITALS: BP 127/63; PULSE 94; TEMP 98.5
--- NOTE | 2021-01-03 20:08 | NUR ---
PT RESTING IN BED. NO RESP DISTRESS. O2 2.5L NC. NO NEEDS AT THIS TIME. CALL LIGHT IN REACH. BED ALARM SET.
[2021-01-04 05:59] VITALS: BP 126/60; PULSE 91; TEMP 98.2
--- NOTE | 2021-01-04 06:29 | NUR ---
NOTIFIED DR ISAAC REGARDING VANCO TROUGH THIS AM. HELD REST OF AM VANCO DOSE ORDERED.
--- NOTE | 2021-01-04 06:40 | NUR ---
Report received from KB Cherry. Patient is sleeping in bed. Call light and bedside table are within reach. Will continue to monitor patient throughout shift.
--- NOTE | 2021-01-04 09:30 | NUR ---
This nurse titrated patient's oxygen from 2 liters pm to 0%. Patient was stable until approximatley 30 minutes later and desat to 86%. This nurse titrated patient up to 1 lpm were he was able to maintain at 94%. Patient is currently on 0.5 liters per minute as is maintaining at 93%. Will continue to monitor patient throughout the shift.
--- NOTE | 2021-01-04 11:40 | NUR ---
Patient's is at bedside with patient. Call light and bedside table are within reach.
[2021-01-04 17:24] VITALS: BP 134/61; PULSE 103; TEMP 98.2
--- NOTE | 2021-01-04 20:19 | NUR ---
PT RESTING IN BED. WATCHING TV. O2 .5L NC. NO DISTRESS. OCCASIONAL NONPRODUCTIVE COUGH. RT HIP AQUACELL INTACT WITH OLD DRG. NO OBVIOUS NEW DRG. NO NEEDS AT THIS TIME. CALL LIGTH IN REACH. BED ALARM SET.
[2021-01-05 05:27] VITALS: BP 134/71; PULSE 98; TEMP 98.4
[2021-01-05 07:07] LABS: MEAN CELL VOLUME 91 fl (80.0-100.0); MEAN CORPUSCULAR HGB CONC 32 g/dl (33.0-37.0); MEAN PLATELET VOLUME 9.8 fl (7.4-10.4); PLATELET COUNT 403 K/mm3 (130-400); RED BLOOD COUNT 2.94 M/mm3 (4.20-5.60); REDCELL DISTRIBUTION WIDTH-CV 15.6 % (11.5-14.5)
[2021-01-05 07:09] LABS: HEMATOCRIT 26.8 % (42.0-52.0); HEMOGLOBIN 8.5 g/dl (13.5-18.0); MEAN CORPUSCULAR HEMOGLOBIN 29 pg (27.0-31.0)
[2021-01-05 07:32] LABS: ALBUMIN 2.1 gm/dL (3.4-4.8); BILIRUBIN,TOTAL 0.4 mg/dL (0.2-1.2); CALCIUM 8.2 mg/dL (8.4-10.2); CREATININE, serum 0.97 mg/dL (0.72-1.25); MAGNESIUM 1.9 mg/dL (1.6-2.6); POTASSIUM 3.6 mmol/L (3.5-4.5)
--- NOTE | 2021-01-05 08:00 | NUR ---
Assessment completed, alert/oriented, vital signs have been stable, reports mild right hip pain/ scheduled Tylenol given prior to PT, right hip incision site dressing has small amount of drainage but otherwise intact and due to change on 01/09, he has eaten breakfast and been up to bathroom, denies needs or concerns, bed alarm is on and call light in reach
[2021-01-05 08:12] LABS: BAND 9 % (0-10); EOSINOPHIL 2 % (0-4); LYMPHOCYTE 11 % (20.0-51.0); METAMYELOCYTE 2 % (0-0); NEUTROPHILS 71 % (42.0-75.2)
[2021-01-05 08:13] LABS: PLATELET ESTIMATE NORMAL (NORMAL)
--- NOTE | 2021-01-05 13:00 | NUR ---
Patient is going to dialysis at this time
--- NOTE | 2021-01-05 15:54 | NUR ---
Admission QIM scores were reviewed by the team. Code of 5 chosen for oral hygiene was determined by team discussion to be the most usual performance before interventions for this patient during the assessment period. Code of 2 chosen for toilet hygiene was determined by team discussion to be the most usual performance for this patient during the assessment period. Code of 2 chosen for toileting transfers was determined by team discussion to be the most usual performance for this patient during the assessment period. Code of 2 chosen for Shower/Bathe self was determined by team discussion to be the most usual performance for this patient during the assessment period. Code of 88 chosen for rolling left to right was determined by team discussion to be the most usual performance before interventions for this patient during the assessment period. Code of 88 chosen for sit to lying was determined by team discussion to be the most usual performance for this patient during the assessment period. Code of 88 chosen for lying to sitting on side of bed was determined by team discussion to be the most usual performance for this patient during the assessment period. Code of 1 for sit to stand was determined by team discussion to be the most usual performance for this patient during the assessment period. Code of 1 for chair/bed to chair transfers was determined by team discussion to be the most usual performance for this patient during the assessment period. Code of 88 chosen for walk 10 feet was determined by team discussion to be the most usual performance for this patient during the assessment period.--PD Zac
[2021-01-05 18:00] VITALS: BP 122/65; PULSE 70; TEMP 98.1
--- NOTE | 2021-01-05 21:41 | NUR ---
ALERT AND OX4. VANCO INFUSED- PICC FLUSHED. AQUACELL C/D/I TO RT HIP. DENIES PAIN. POSITIONED IN BED. LIGHTS DOWN AFTER PM MEDS GIVEN. POC DISCUSSED. CALL RICKY CARRASCO. NEEDS MET.
[2021-01-06 04:26] VITALS: BP 137/65; PULSE 96; TEMP 97.6
--- NOTE | 2021-01-06 04:26 | NUR ---
RESTED THROUGH THE NIGHT WITHOUT INCIDENT. NEEDS ARE MET. CALL LIGHT WI REACH.
[2021-01-06 16:00] VITALS: BP 136/61; PULSE 98; TEMP 98.4
--- NOTE | 2021-01-06 18:09 | NUR ---
Pt has had uneventful day. Dressing to the right hip was changed due to saturation. Aquacell placed over stapled incision. Incision was clean, wet, and intact. Drainage was clear fluid. No other concerns. Will report to power and recovery shift engineer RN.
--- NOTE | 2021-01-06 21:48 | NUR ---
ALERT AND OX4. DENIES CHEST PAIN, SOA OR DIZZY. AQUACELL C/D/I. VANCO INFUSED, INT FLUSHED. PM MEDS GIVEN. PRN DISCUSSED. POC DISCUSSED. CALL LIGHT WI REACH. NEEDS ARE MET.
[2021-01-07 05:19] VITALS: BP 142/63; PULSE 94; TEMP 98
--- NOTE | 2021-01-07 05:42 | NUR ---
Rested through the night without incident. Needs met. Call light wi reach. Vancomycin infusing now.
--- NOTE | 2021-01-07 06:56 | NUR ---
Report received from KB Zee. Patient is sleeping in bed. Call light and bedside table are within reach. Will continue to monitor patient throughout shift.
[2021-01-07 07:12] LABS: HEMATOCRIT 26.5 % (42.0-52.0); HEMOGLOBIN 8.4 g/dl (13.5-18.0)
--- NOTE | 2021-01-07 09:30 | NUR ---
This nurse titrated patient's oxygen from 2 lpm to 0.5 lpm and patient was able to maintain SPO2 above 90%. At approximately 1000, this nurse titrated patient completed off of oxygen. Patient did a shower with SARAH Sanchez and and was able to maintain SATS over 90%. Will continue to monitor patient throughout shift.
--- NOTE | 2021-01-07 13:22 | NUR ---
Patient's is at bedside. Patient is toileting and states pain is 3.5-4/10 but does not want pain medication at this time. Call light and bedside table are with reach.
--- NOTE | 2021-01-07 13:24 | NUR ---
Patient's is at bedside. Call light and bedside table are within reach.
--- NOTE | 2021-01-07 13:44 | NUR ---
JIMMY met with the patient's , Nova, to present and review the IPR Team Conference Note. The team plans to re-evaluate the patient next Tuesday. No discharge date has been set yet. The patient's was agreeable to the plan. A patient/family meeting was scheduled for next Tuesday, 01/14, at 1300. JIMMY notified IPR Director.
[2021-01-07 15:57] VITALS: BP 121/61; PULSE 97; TEMP 98.1
--- NOTE | 2021-01-07 21:39 | NUR ---
PT RESTING IN BED. WATCHING TV. VANCOMYCIN INFUSING TO PICC LINE.
[2021-01-08 04:15] VITALS: BP 135/75; PULSE 98; TEMP 97.5
--- NOTE | 2021-01-08 06:44 | NUR ---
Report received from KB Cherry. Patient is sleeping in bed. Call light and bedside table are within reach. Will continue to monitor patient throughout shift.
[2021-01-08 17:39] VITALS: BP 117/51; PULSE 109; TEMP 98
--- NOTE | 2021-01-08 20:33 | NUR ---
PT RESTING IN BED. WATCHING TV. NO NEEDS AT THIS TIME. CALL LIGHT IN REACH. BED ALARM SET.
[2021-01-09 04:27] VITALS: BP 136/71; PULSE 100; TEMP 98.8
[2021-01-09 07:52] LABS: CREATININE, serum 0.97 mg/dL (0.72-1.25)
--- NOTE | 2021-01-09 08:00 | NUR ---
PATIENT IS ORIENTED BUT DROWSY THIS AM. VSS. HEAD TO TOE ASSESSMENT COMPLETE. AM MEDS GIVEN. NO COMPLAINTS AT THIS TIME. PATIENT GOING DOWN TO THERAPY
--- NOTE | 2021-01-09 08:17 | NUR ---
Vancomycin Follow-up Pharmacy Note Current regimen: Vancomycin 2 gm IV q12h Vancomycin trough: 28.9 (drawn while dose infusing) Adjustments: Will redraw Vancomycin trough prior to next dose at 1800 today. Trough falsely high as Vancomycin dose infusing during lab draw. No change in serum creatinine (SCr 0.97) from 01/05/21. Pharmacy will continue to monitor.
--- NOTE | 2021-01-09 10:38 | NUR ---
JIMMY met with the patient to follow up before the weekend. The patient states that he is doing okay. He reports that it [birth year] his birthday tomorrow and that his will be coming tomorrow to see him. He had no questions or concerns for JIMMY at this time.
[2021-01-09 18:08] VITALS: BP 139/77; PULSE 73; TEMP 98.6
[2021-01-09 18:14] VITALS: BP 124/65; PULSE 93; TEMP 98.5
--- NOTE | 2021-01-09 18:20 | NUR ---
CALLED CRITICAL VANCO TROUGH OF 28.4 TO THIAGO HAQUE. ORDERS TO HOLD NEXT VANCO DOSE. PHARMACY TO DOSE
--- NOTE | 2021-01-09 18:54 | NUR ---
RECEIVED CHANGE OF SHIFT REPORT FROM DAY SHIFT NURSE. PATIENT RESTING IN BED DURING REPORT, DENIES ANY NEEDS OR CONCERNS. CALL LIGHT WITHIN REACH.
[2021-01-10 05:59] VITALS: BP 137/79; PULSE 92; TEMP 99
--- NOTE | 2021-01-10 07:13 | NUR ---
CHANGE OF SHIFT REPORT GIVEN TO DAY SHIFT NURSE, ADAM QUILES.
--- NOTE | 2021-01-10 07:16 | NUR ---
Vancomycin Follow-up Pharmacy Note Current regimen: VANCOMYCIN 2 G Q12H Vancomycin trough: 28.4 Adjustments: ONE DOSE HELD, REDUCE TO 1.75G Q12H. TROUGH 01/12 @0530
[2021-01-10 16:16] VITALS: BP 127/68; PULSE 92; TEMP 99
--- NOTE | 2021-01-10 19:13 | NUR ---
RECEIVED CHANGE OF SHIFT REPORT FROM DAY SHIFT NURSE. DENIES ANY NEEDS OR CONCERNS AT TIME OF REPORT. CALL LIGHT WITHIN REACH.
[2021-01-11 04:56] VITALS: BP 145/72; PULSE 94; TEMP 98.5
--- NOTE | 2021-01-11 07:31 | NUR ---
CHANGE OF SHIFT REPORT GIVEN TO DAY SHIFT NURSE, ADAM QUILES.
[2021-01-11 16:45] VITALS: BP 145/71; PULSE 94; TEMP 99.5
[2021-01-12 05:17] VITALS: BP 141/81; PULSE 94; TEMP 98.5
--- NOTE | 2021-01-12 06:30 | NUR ---
Report received from night nurse. Patient is sleeping in bed. Call light and bedside table are within reach. Will continue to monitor patient throughout shift.
--- NOTE | 2021-01-12 06:45 | NUR ---
Patient is awake and getting blood drawn from lab. Patient denies pain at this time. Call light and bedside table are within reach. Will continue to monitor patient throughout shift.
[2021-01-12 07:45] LABS: MEAN CELL VOLUME 96 fl (80.0-100.0); MEAN CORPUSCULAR HGB CONC 31 g/dl (33.0-37.0); MEAN PLATELET VOLUME 9.5 fl (7.4-10.4); PLATELET COUNT 490 K/mm3 (130-400); REDCELL DISTRIBUTION WIDTH-CV 16.5 % (11.5-14.5)
[2021-01-12 07:48] LABS: HEMATOCRIT 29.8 % (42.0-52.0); HEMOGLOBIN 9.1 g/dl (13.5-18.0); MEAN CORPUSCULAR HEMOGLOBIN 29 pg (27.0-31.0)
[2021-01-12 07:59] LABS: ALBUMIN 2.6 gm/dL (3.4-4.8); C-REACTIVE PROTEIN 0.7 mg/dL (0.00-0.50); CALCIUM 8.5 mg/dL (8.4-10.2); CREATININE, serum 1.12 mg/dL (0.72-1.25); TOTAL PROTEIN 6.6 gm/dL (6.2-8.1)
[2021-01-12 08:17] LABS: BILIRUBIN,TOTAL 0.5 mg/dL (0.2-1.2)
[2021-01-12 08:19] LABS: BAND 6 % (0-10); EOSINOPHIL 4 % (0-4); LYMPHOCYTE 11 % (20.0-51.0); METAMYELOCYTE 2 % (0-0); NEUTROPHILS 61 % (42.0-75.2); PLATELET ESTIMATE INCREASED (NORMAL)
[2021-01-12 08:20] LABS: HYPOCHROMIA 1+
--- NOTE | 2021-01-12 08:33 | NUR ---
This nurse spoke with rashel Casey and reported critical Vanco of 23.2. This nurse was informed to hold this mornings dose and would be a new order in.
--- NOTE | 2021-01-12 10:12 | NUR ---
Patient's is at bedside.
--- NOTE | 2021-01-12 11:00 | NUR ---
This nurse called Dr. Hughes nurse to get an order to change patient's aqua cell dressing. Dr. Hughes learning support assistant called back and gave a VORB to change dressing. Dr. Hughes learning support assistant also asked if the patient would be released in time to to attend his appointment in two days and this nurse informed the assitant that the patient would not be discharged by then and probably would not be until the following week. The learning support assistant informed me Dr. Hughes would visit the patient in IPR. Call light and bedside table are within reach.
--- NOTE | 2021-01-12 15:30 | NUR ---
Patient has completed all therapies for the day and is in WC. Call light and bedside table are within reach.
[2021-01-12 17:52] VITALS: BP 130/69; PULSE 94; TEMP 97.6
[2021-01-13 05:25] VITALS: BP 133/76; PULSE 90; TEMP 98.5
--- NOTE | 2021-01-13 07:00 | NUR ---
Report received from KB Villa. Patient is resting in bed and denies pain at this time. Call light and bedside table are within reach. Will continue to monitor throughout shift.
--- NOTE | 2021-01-13 08:15 | NUR ---
This nurse spoke with Dr. Hughes in reference to the patient's dressing change but was unable to assess the patient because patient was in the bathroom. Dr. Hughes gave the verbal order to remove patient's nicky. This nurse will comply with doctor's orders.
--- NOTE | 2021-01-13 08:40 | NUR ---
Dr. Hughes stopped in to see patient but he was in the bathroom. Dr. Hughes gave the verbal order to remove nicky and stated he would try to stop back by after surgery.
--- NOTE | 2021-01-13 14:20 | NUR ---
This nurse was removing patient's nicky when Dr. Hughes stopped by and gave the verbal order to continue to remove nicky and to steri-strip the distal end of the wound due to masceration. This nurse complied with doctor's orders.
--- NOTE | 2021-01-13 14:56 | NUR ---
Due to another family meeting have to be scheduled at 1300, SW contacted the patient's to reschedule their family meeting. The patient's family meeting was moved to 1315 tomorrow.
[2021-01-13 17:34] VITALS: BP 119/67; PULSE 93; TEMP 98.3
--- NOTE | 2021-01-13 22:22 | NUR ---
Patient denies having pain and discomfort. PICC to RUE. Denies SOB and dyspnea. LS CTA. Respirations even and unlabored. HRR. Capillary refill less than 3 seconds. Non-tenting skin turgor. BSAx4. Abdomen soft and non-tender. Used bedside urinal, clear yellow urine. 1+ edema LLE, 2+ RLE. Abrasion to nose. Steristrips to right hip CDI. Voices no questions, needs, or concerns at this time. Resting in bed with call light within reach.
[2021-01-14 05:26] VITALS: BP 129/70; PULSE 96; TEMP 98.4
--- NOTE | 2021-01-14 05:42 | NUR ---
Patient has denied having pain and discomfort this shift. Assisted to wheelchair this morning as requested. Received scheduled APAP as ordered. Has voiced no further questions, needs, or concerns this shift. Call light within reach.
--- NOTE | 2021-01-14 14:30 | NUR ---
JIMMY attended the patient/family meeting. The patient's , Nova, was at bedside. Also present was IPR Director, PT, and OT. IPR Director started by explaining the purpose of the meeting. PT/OT then discussed the patient's progess so far. The team set a tentative discharge date for next Tuesday, 01/21, with home health PT/OT. The patient then became tearful. He states that he was hoping he could discharge by Tuesday. The patient's then became tearful too. The team provide support. Nova reports that she feels comfortable with the patient coming home on Tuesday. The patient is going to need 6 weeks of outpatient IV antibiotics. The patient and his report that they would prefer to do them at home. Nova reports that she feels comfortable administering the antibiotics. The team answered all questions. The patient's discharge date has been set for this Tuesday. JIMMY then followed up with the patient and Nova and provided them with the IPR Team Conference Note. Nova reports that they are familiar with [facility] out of [place] and they would prefer to use them. The patient and Nova are agreeable to using [facility] for the antibiotics. JIMMY contacted and faxed a referral to Varun at [facility]. Varun reports that they will need to work on getting insurance auth. JIMMY contacted and faxed the patient's information to Marycruz at [place] to run the patient's benefits for home antibiotics. Marycruz reports that she will get back to , once she learns benefits. She reports that she can also come up to the hospital on Tuesday to provide some education to the patient and his . JIMMY updated the patient's PA on the above to obtaing a script for the antibiotics. JIMMY to continue to follow.
[2021-01-14] MEDS ORDERED: VANCO 2 GR2 GM/500 M IV ×2 (15:04→15:07)
[2021-01-14] MEDS ORDERED: ROCEPHIN 2GM VIAL21 IV (15:04)
[2021-01-14 16:11] VITALS: BP 109/56; PULSE 105; TEMP 98.5
--- NOTE | 2021-01-14 16:30 | NUR ---
JIMMY faxed the antibiotic scripts to [facility].
--- NOTE | 2021-01-14 18:30 | NUR ---
RECEIVED CHANGE OF SHIFT REPORT FROM DAY SHIFT NURSE.
--- NOTE | 2021-01-14 18:44 | NUR ---
UP IN WHEELCHAIR, RESTING WITH EYES CLOSED. DENIED ANY NEEDS DURING SHIFT CHANGE REPORT. CALL LIGHT WITHIN REACH. UP IN ROOM INDEPENDENTLY.
[2021-01-15 05:00] VITALS: BP 144/65; PULSE 89; TEMP 99
--- NOTE | 2021-01-15 07:16 | NUR ---
Received report from KB [facility]. Patient was up and sitting in WC. Patient denies pain at this time. Call light and bedside table are within reach. Will continue to monitor patient throughout shift.
--- NOTE | 2021-01-15 07:17 | NUR ---
CHANGE OF SHIFT REPORT GIVEN TO DAY SHIFT NURSE, DULCE QUILES.
--- NOTE | 2021-01-15 15:00 | NUR ---
Patient has completed all therapies for the day and is resting in recliner. Call light and bedside table are within reach.
--- NOTE | 2021-01-15 16:06 | NUR ---
Marycruz, at [facility], reports that she has already reached out to the patient's and plans to meet her and the patient tomorrow morning to go over some education. JIMMY staffed with the patient's RN about the patient's vanco trough today. They are unable to do the trough until around 1630. JIMMY notified Marycruz of this. Marycruz reports that JIMMY can get the trough results to SW in the morning, but that the patient will need to receive his antibiotics at the hospital tomorrow, since his home antibiotics will not be delivered until Tuesday now.
[2021-01-15 16:16] VITALS: BP 115/50; PULSE 96; TEMP 98.6
--- NOTE | 2021-01-15 19:00 | NUR ---
PT RESTING IN BED. MOD I IN ROOM WITH WALKER. ENC TO ELEVATE BLE D/T EDEMA. TOOK OFF MYRANDA HOSE OFF FOR A SHORT PERIOD. RT HIP INCISION HEALING STERI STRIPS INTACT. CALL LIGHT IN REACH.
[2021-01-16 05:23] VITALS: BP 148/60; PULSE 89; TEMP 97.7
[2021-01-16 08:10] LABS: CALCIUM 9.3 mg/dL (8.4-10.2); CREATININE, serum 1.09 mg/dL (0.72-1.25)
--- NOTE | 2021-01-16 08:30 | NUR ---
Patient sitting up in bed. Alert and oriented x 3. Assessment complete. Denies pain at this time. Patient independent in room. Justin reide to BLE. Denie needs at this time.
[2021-01-16] MEDS ORDERED: DESENEX TP (10:34)
[2021-01-16] MEDS ORDERED: K-DUR 10 MEQ T10 MEQ PO (10:35)
[2021-01-16] MEDS ORDERED: XARELTO2.5 MG PO (10:38)
[2021-01-16] MEDS ORDERED: NATURAL IRON65 MG PO (10:39)
[2021-01-16] MEDS ORDERED: CUBICIN 500MG500 MG IV (10:52)
--- NOTE | 2021-01-16 11:55 | NUR ---
JIMMY faxed the patient's Vanc Trough results and labs to Marycruz at [place]. JIMMY collaborated with the PA and pharmacist on antibiotic recs. The pharmacist is recommending Dapto vs Vanc. ID recommends Dapto now too. JIMMY notified Marycruz at [place] and faxed her the Dapto script and the patient's discharge orders. Marycruz reports that they will have the meds shipped to the patient's home this evening or tomorrow morning. The patient will just need to receive his IV antibiotics here today. Marycruz reports that she will be up to the hospital soon to provide some education to the patient and his . JIMMY contacted and updated Varun at [facility]. Varun reports that they are good to accept the patient and that she will be out to the patient's home around noon tomorrow to admit. JIMMY updated the patient's RN on the above. JIMMY met with the patient and his and updated them on the above. They are in agreement to the plan. The patient is to discharge back home today, 01/16, with home health services for fpc/PT/OT from [facility] and IV antibiotics from [facility]. JIMMY faxed discharge orders and summary to Varun at [facility]. No additional needs at this time.
--- NOTE | 2021-01-16 13:50 | NUR ---
Discharge education provided to patient and spouse. Educated on new medications and medication changes. Patient eduated on picc line. All questions answered. Patient out by wheelchair with surical staff and family. Denies further needs at this time.
== END 2021-01-16 13:50 | disposition home health service (06) | DRG 949 ==
PROVIDERS: Physician Assistant; ADMIT Internal Medicine
DX: T84.020D Dislocation of internal right hip prosthesis, subsequent encounter (principal); K25.4 Chronic or unspecified gastric ulcer with hemorrhage; K31.1 Adult hypertrophic pyloric stenosis; T84.51XD Infection and inflammatory reaction due to internal right hip prosthesis, subsequent encounter; E66.01 Morbid (severe) obesity due to excess calories; Z96.643 Presence of artificial hip joint, bilateral; R26.89 Other abnormalities of gait and mobility; H55.01 Congenital nystagmus; B96.81 Helicobacter pylori [H. pylori] as the cause of diseases classified elsewhere; D64.9 Anemia, unspecified; R00.0 Tachycardia, unspecified; R09.02 Hypoxemia; I95.9 Hypotension, unspecified; I10 Essential (primary) hypertension; E87.6 Hypokalemia; E78.5 Hyperlipidemia, unspecified; R73.03 Prediabetes; N40.0 Benign prostatic hyperplasia without lower urinary tract symptoms; G47.33 Obstructive sleep apnea (adult) (pediatric); Z91.14 Patient's other noncompliance with medication regimen; Z79.899 Other long term (current) drug therapy; Z79.82 Long term (current) use of aspirin; Z79.891 Long term (current) use of opiate analgesic; Z79.2 Long term (current) use of antibiotics; Z73.6 Limitation of activities due to disability; Z88.0 Allergy status to penicillin; Y83.8 Other surgical procedures as the cause of abnormal reaction of the patient, or of later complication, without mention of misadventure at the time of the procedure; Z68.30 Body mass index [BMI] 30.0-30.9, adult
CPT/HCPCS: 99222-AI; 99232-AI; 99239; J0696; J0878; J1815; J2997; J3370; J7040; J7050

== ENCOUNTER 2021-01-20 00:30 | Inpatient (IN) | payer BC ==
[~2021-01-20] VITALS: Ht 180.3 cm; Wt 121.1 kg
[~2021-01-20 00:30] MED LIST changes: +CUBICIN 500MG500 MG IV; +DESENEX TP; +K-DUR 10 MEQ T10 MEQ PO; +NATURAL IRON65 MG PO; +NORCO 325 MG-7.1 TAB PO; +XARELTO2.5 MG PO
[2021-01-20 02:54] LABS: BASO % 0.4 % (0.0-2.0); EOS # 0.1 K/mm3 (0.0-0.7); EOS % 0.6 % (0-4.0); GRAN # 7.3 K/mm3 (1.4-6.5); GRAN % 71.4 % (42.2-75.2); LYMPH # 1.5 K/mm3 (1.2-3.4); LYMPH % 14.6 % (20.0-51.0); MEAN CELL VOLUME 94 fl (80.0-100.0); MEAN CORPUSCULAR HGB CONC 30 g/dl (33.0-37.0); MEAN PLATELET VOLUME 9.1 fl (7.4-10.4); MONO # 1.3 K/mm3 (0.1-0.6); MONO % 12.5 % (1.7-9.3); PLATELET COUNT 374 K/mm3 (130-400); RED BLOOD COUNT 3.32 M/mm3 (4.20-5.60); REDCELL DISTRIBUTION WIDTH-CV 16.6 % (11.5-14.5)
[2021-01-20 02:57] LABS: HEMATOCRIT 31.3 % (42.0-52.0); HEMOGLOBIN 9.5 g/dl (13.5-18.0); MEAN CORPUSCULAR HEMOGLOBIN 29 pg (27.0-31.0)
[2021-01-20 03:14] LABS: ALBUMIN 3.1 gm/dL (3.4-4.8); BILIRUBIN,TOTAL 0.5 mg/dL (0.2-1.2); C-REACTIVE PROTEIN 0.6 mg/dL (0.00-0.50); CALCIUM 9.3 mg/dL (8.4-10.2); CREATININE, serum 1.12 mg/dL (0.72-1.25); POTASSIUM 4.1 mmol/L (3.5-4.5); TOTAL PROTEIN 7.2 gm/dL (6.2-8.1)
--- NOTE | 2021-01-20 03:30 | NUR ---
Pt. arrived to the floor via stretcher, pt. transferred to the bed with 4 assist and slide board. Pt. is A&OX3, assessment complete. PICC to rt. upper arm. Pt. rates pain to rt. leg at a 5 on pain scale. Pt. has a knee immobilizer on his rt. leg. Pt. reports that the immobilizer is helping his pain. Pt. denies further needs, call light within reach.
[2021-01-20 07:50] VITALS: BP 127/79; PULSE 96; TEMP 98.2
--- NOTE | 2021-01-20 08:00 | NUR ---
Pt supine in bed. PICC line secured with di wrap on rt upper arm infusing sodium chloride at 75ml/hr. O2 1L via NC. Unable to assess coccyx due to pts fx to rt hip. RLE immobilized with brace. LLE has SCD and TEDS on. Remains NPO. No c/o discomfort at this time. Call light within reach.
[2021-01-20 08:20] LABS: COLLECTION METHOD CATHETER
[2021-01-20 08:25] LABS: MUCOUS Present /lpf; PH 6 (5-8); SQUAMOUS EPITHELIAL 0-2 /hpf; URINE APPEARANCE Clear; URINE BACTERIA Rare /hpf; URINE BILIRUBIN Negative (NEGATIVE); URINE BLOOD Negative (NEGATIVE); URINE COLOR Yellow; URINE GLUCOSE Negative (NEGATIVE); URINE KETONE Negative (NEGATIVE); URINE LEUKOCYTE ESTERASE Negative (NEGATIVE); URINE NITRATE Negative (NEGATIVE); URINE PROTEIN(semi-quant) Negative (NEGATIVE); URINE RBC 0-2 /hpf; URINE UROBILINOGEN Negative (NEGATIVE)
[2021-01-20 10:35] VITALS: BP 146/84; PULSE 95; TEMP 98.4
--- NOTE | 2021-01-20 11:06 | NUR ---
SW met with patient to discuss d/c plan. This is a re-admit as patient was here in Dec 2020 before discharging to [facility]. Patient's home is in [place] with his Nova ([phone]). PCP is Dr. Adan Fernandes; patient was independent prior to his last hosp stay. Patient has a walker and shower chair. He does not have a MPOA and he is not interested in completing one. SW will continue following for d/c needs. D/C plan - awaiting further recommendations
--- NOTE | 2021-01-20 13:40 | NUR ---
Patient admitted with a PICC in his right upper arm. dressing dated 01/19/21. No signs or symptoms of IV complications noted.
[2021-01-20] MEDS ORDERED: XARELTO2.5 MG PO (15:27)
[2021-01-20 16:10] VITALS: BP 147/76; PULSE 91; TEMP 98
--- NOTE | 2021-01-20 18:30 | NUR ---
Patient has been uncomfortable when the Tigerspike stops working. His dose timing was changed from Q6h to Q4h. He does not want to eat or drink much today. I've been encouraging him to eat but he has no apetite. He seems discouraged today and depressed. Explained that he will most likely need rehab again. No other changes at this time. Call light within reach. He and his are aware that he is having surgery tomorrow. No other changes at this time. Call light within reach.
[2021-01-20 19:02] VITALS: BP 140/76; PULSE 90; TEMP 98
--- NOTE | 2021-01-20 19:45 | NUR ---
Pt. laying in bed. Pt. is A&OX3, assessment complete. PICC to rt. upper arm patent. Immobilizer brace to rt. leg. Pt. reports pain at a 6 on pain scale, gave pain meds per orders. Pt. denies further needs, call light within reach.
[2021-01-20 22:12] VITALS: BP 127/67; PULSE 85; TEMP 98
[2021-01-21] VITALS (13 sets, daily range): BP systolic 93–143; BP diastolic 47–71; PULSE 82–106; TEMP 98–98.7
[2021-01-21 06:52] LABS: MEAN CELL VOLUME 97 fl (80.0-100.0); MEAN CORPUSCULAR HGB CONC 30 g/dl (33.0-37.0); MEAN PLATELET VOLUME 9.8 fl (7.4-10.4); PLATELET COUNT 315 K/mm3 (130-400); RED BLOOD COUNT 3.04 M/mm3 (4.20-5.60); REDCELL DISTRIBUTION WIDTH-CV 16.5 % (11.5-14.5)
[2021-01-21 06:57] LABS: HEMATOCRIT 29.4 % (42.0-52.0); HEMOGLOBIN 8.9 g/dl (13.5-18.0); MEAN CORPUSCULAR HEMOGLOBIN 29 pg (27.0-31.0)
[2021-01-21 07:09] LABS: CALCIUM 9.1 mg/dL (8.4-10.2); CREATININE, serum 0.88 mg/dL (0.72-1.25); POTASSIUM 4.1 mmol/L (3.5-4.5)
--- NOTE | 2021-01-21 07:35 | NUR ---
Pt laying in bed. PICC line secured with di wrap on rt upper arm infusing Sodium Chloride at 75ml/hr. SCD and TEDS on left leg. Right leg immobilized with brace. Pt c/o dry mouth, asked for water or ice chips. Pt is NPO. Offered mouth swab to moisten mouth instead. Pt was content with using it. No further discomforts. Call light within reach. Shift assessment complete.
--- NOTE | 2021-01-21 12:51 | NUR ---
Pt off the floor for surgery at this time
--- NOTE | 2021-01-21 13:07 | NUR ---
Initial visit; Patient states he is not feeling well and welcomes prayer. Engineering Systems Analyst offered empathy and prayer and will keep patient in her prayers.
--- NOTE | 2021-01-21 15:06 | NUR ---
SW spoke with [facility] and gave her referral as patient is interested in returning to [facility] when medically ready.
--- NOTE | 2021-01-21 18:30 | NUR ---
Pt arrived back from surgery. He is awake with no complaints of pain. BP 90s/40s, will monitor. Call light within reach
--- NOTE | 2021-01-21 19:00 | NUR ---
RECEIVED CHANGE OF SHIFT REPORT FROM DAY SHIFT NURSE.
[2021-01-22 00:03] VITALS: BP 110/64; PULSE 82; TEMP 97.7
--- NOTE | 2021-01-22 00:56 | NUR ---
PATIENT RESTING WITH EYES CLOSED/SLEEPING INTERMITTENTLY. REPOSITIONED SELF UP IN BED WITH SOME ASSIST WITH RLE, ABLE TO WIGGLE R TOES AND SLR TO RLE WITH PATIENT STATING AWARENESS OF NO WEIGHT BEARING STATUS WHEN HE IS TO WORK WITH PT IN MORNING. DENIES CHEST PAIN/SOA/NAUSEA AT THIS TIME. DENIES NUMBNESS/TINGLING TO EXTREMITIES AT THIS TIME.
[2021-01-22 04:46] VITALS: BP 111/56; PULSE 92; TEMP 98
--- NOTE | 2021-01-22 07:00 | NUR ---
Pt reports that he is feeling okay at this time. No needs verbalized, recently had some pain medication, will continue to monitor
[2021-01-22 07:19] LABS: BASO % 0.1 % (0.0-2.0); GRAN # 6.9 K/mm3 (1.4-6.5); GRAN % 77.3 % (42.2-75.2); LYMPH % 10.6 % (20.0-51.0); MEAN CORPUSCULAR HGB CONC 32 g/dl (33.0-37.0); MONO % 11.4 % (1.7-9.3); PLATELET COUNT 274 K/mm3 (130-400); RED BLOOD COUNT 3.03 M/mm3 (4.20-5.60); REDCELL DISTRIBUTION WIDTH-CV 15.7 % (11.5-14.5)
[2021-01-22 07:20] LABS: HEMATOCRIT 27.7 % (42.0-52.0); HEMOGLOBIN 8.9 g/dl (13.5-18.0); MEAN CELL VOLUME 91 fl (80.0-100.0); MEAN CORPUSCULAR HEMOGLOBIN 29 pg (27.0-31.0)
--- NOTE | 2021-01-22 07:27 | NUR ---
CHANGE OF SHIFT REPORT GIVEN TO DAY SHIFT NURSE, KRYSTLE QUILES.
[2021-01-22 07:28] VITALS: BP 136/67; PULSE 100; TEMP 98.7
[2021-01-22 07:29] LABS: CALCIUM 8.7 mg/dL (8.4-10.2); CREATININE, serum 0.89 mg/dL (0.72-1.25); POTASSIUM 4.6 mmol/L (3.5-4.5)
--- NOTE | 2021-01-22 10:00 | NUR ---
Pt doing well this morning. He worked with PT and did well getting up to the chair. Reported pain was tolerable. Pt did not have much of an appetite for breakfast. No needs verbalized, call light within reach
[2021-01-22 11:10] VITALS: BP 119/95; PULSE 107; TEMP 97.7
[2021-01-22 15:19] VITALS: BP 92/37; TEMP 98.9
--- NOTE | 2021-01-22 16:00 | NUR ---
Pt sat up in the chair until early afternoon. He did do well getting back in to bed with one assist and using the walker. He continues to use the IS when awake and does well. He is denying the need for pain medication at this time. Pt present in the room, call light within reach, will continue to monitor
[2021-01-22 19:50] VITALS: BP 105/51; PULSE 110; TEMP 98.7
--- NOTE | 2021-01-22 20:35 | NUR ---
Pt. sitting up in bed. Pt. is A&OX3, assessment complete. PICC to rt. upper arm patent. Dressing to rt. leg CDI. Pt. reports pain at a 2 on pain scale. Pt. denies further needs, call light within reach.
[2021-01-23 00:16] VITALS: BP 112/50; PULSE 108; TEMP 98.3
[2021-01-23 04:21] VITALS: BP 124/68; PULSE 103; TEMP 98.4
[2021-01-23 07:01] LABS: MEAN CELL VOLUME 94 fl (80.0-100.0); MEAN CORPUSCULAR HGB CONC 32 g/dl (33.0-37.0); MEAN PLATELET VOLUME 10.2 fl (7.4-10.4); PLATELET COUNT 249 K/mm3 (130-400); RED BLOOD COUNT 2.62 M/mm3 (4.20-5.60); REDCELL DISTRIBUTION WIDTH-CV 16.1 % (11.5-14.5)
[2021-01-23 07:09] LABS: HEMATOCRIT 24.5 % (42.0-52.0); HEMOGLOBIN 7.8 g/dl (13.5-18.0); MEAN CORPUSCULAR HEMOGLOBIN 30 pg (27.0-31.0)
[2021-01-23 07:14] LABS: CALCIUM 8.4 mg/dL (8.4-10.2); CREATININE, serum 0.88 mg/dL (0.72-1.25); POTASSIUM 3.5 mmol/L (3.5-4.5)
[2021-01-23 08:00] VITALS: BP 126/55; PULSE 105; TEMP 98.7
[2021-01-23 12:00] VITALS: BP 112/60; TEMP 98.3
--- NOTE | 2021-01-23 13:00 | NUR ---
Patient will be moving to [facility] this afternoon. Patient is doing well, no changes at this time. Pain has been well controlled with norco. No other changes at this time. Call light within reach.
== END 2021-01-23 14:14 | DRG 481 ==
LOC: COL.ER 00:30 → SURG 02:56
PROVIDERS: Nurse Practitioner; Physician Assistant; Student in an Organized Health Care Education/Training Program; ADMIT Orthopaedic Surgery
PROC: 0QS804Z Reposition Right Femoral Shaft with Internal Fixation Device, Open Approach (ICD-10-PCS; principal; 2021-01-21 13:45)
DX: S72.301A Unspecified fracture of shaft of right femur, initial encounter for closed fracture (principal); M97.01XA Periprosthetic fracture around internal prosthetic right hip joint, initial encounter; I10 Essential (primary) hypertension; E78.5 Hyperlipidemia, unspecified; G47.33 Obstructive sleep apnea (adult) (pediatric); N40.0 Benign prostatic hyperplasia without lower urinary tract symptoms; D64.9 Anemia, unspecified; E66.01 Morbid (severe) obesity due to excess calories; K21.9 Gastro-esophageal reflux disease without esophagitis; H55.01 Congenital nystagmus; Z96.641 Presence of right artificial hip joint; Z20.822 Contact with and (suspected) exposure to COVID-19; W01.0XXA Fall on same level from slipping, tripping and stumbling without subsequent striking against object, initial encounter; Y93.89 Activity, other specified; Y92.009 Unspecified place in unspecified non-institutional (private) residence as the place of occurrence of the external cause; Z79.82 Long term (current) use of aspirin; Z68.37 Body mass index [BMI] 37.0-37.9, adult
CPT/HCPCS: 99223-AI; 99232-AI; 99233-AI; 99239; A9284; C1713; C1776; J0696; J0878; J1100; J1170; J1650; J1815; J1885; J2250; J2270; J2370; J2405; J2704; J2795; J3010; J7030; J7050; J7120; L1830; L1846; P9016

== ENCOUNTER 2021-01-23 13:05 | Inpatient (IN) | payer BC ==
[~2021-01-23] VITALS: Ht 180.3 cm; Wt 118.6 kg
[2021-01-23 16:11] VITALS: BP 96/40; PULSE 106; TEMP 97.5
--- NOTE | 2021-01-23 16:50 | NUR ---
Patients dressing changes at this time. Removed drain from right thigh, site had a lot of bleeding, held pressure for a few minutes and the bleeding stopped. Placed aquacel dressing to incision to right lateral thigh, patient has an incision from his knee to his right upper thigh. Minimal drainage to old dressing. Placed aquacel dressing to incision. patient tolerated well. No other changes at this time.
--- NOTE | 2021-01-23 19:30 | NUR ---
Patients admission assessments completed. Patient did not want anything for pain at this time. No complaints of nausea. No other changes at this time. Call light within reach.
[2021-01-24 05:33] VITALS: BP 128/54; PULSE 97; TEMP 99.1
--- NOTE | 2021-01-24 06:59 | NUR ---
Report received from KB [facility]. Patient is awake and speaking with Dr. Hughes. Call light and bedside table are within reach. Will continue to monitor patient throughout shift.
--- NOTE | 2021-01-24 11:40 | NUR ---
Patient has completed all therapies for the day and is resting in bed. Call light and bedside table are within reach.
--- NOTE | 2021-01-24 15:26 | NUR ---
SW met with patient to complete intake. Patient states that he lives with spouse Nova [phone] in [place]. Patient states that he uses a walker and is independent with ADL's. Patient provides that his PCP is in [facility], pharmacy is [facility], and is able to afford medications. Patient states that he has not appointed anyone to be his DPOA-HC Patient also states that he believes that he will need HH upon DC. SW will continue to follow.
[2021-01-24 18:17] VITALS: BP 114/56; PULSE 99; TEMP 98.5
--- NOTE | 2021-01-25 04:41 | NUR ---
PT IN BED. OXYCODONE FOR RLE DISCOMFORT. NO N/V ASSIST OF 1 FOR TRANSFER TO/FROM COMMODE/BED.
[2021-01-25 05:41] VITALS: BP 139/68; PULSE 94; TEMP 98.6
--- NOTE | 2021-01-25 06:35 | NUR ---
Patient is resting comfortably in bed and states his pain is a 4/10. Patient does not want pain meds at this time. Call light and bedside table are within reach. Will continue to monitor patient throughout shift.
--- NOTE | 2021-01-25 09:20 | NUR ---
Patient refused to put on MYRANDA hose stating he is already on a blood thinner so he did not know why he had to put them on. This nurse explained why he needs to wear the MYRANDA hose and he still refused. Call light and bedside table are within reach.
--- NOTE | 2021-01-25 13:29 | NUR ---
This nurse scanned the wrong patient the wrong medication. Oxycodone was never administered to this patient.
[2021-01-25 17:47] VITALS: BP 120/66; PULSE 98; TEMP 98.3
--- NOTE | 2021-01-25 18:58 | NUR ---
RECEIVED CHANGE OF SHIFT REPORT FROM DAY SHIFT NURSE.
[2021-01-26 05:55] VITALS: BP 145/89; PULSE 97; TEMP 98.7
--- NOTE | 2021-01-26 07:15 | NUR ---
CHANGE OF SHIFT REPORT GIVEN TO DAY SHIFT NURSE, RAMIRO QUILES.
--- NOTE | 2021-01-26 08:00 | NUR ---
Shift assessment preformed. Scheduled medicaitons given. Patient denies any pain at this time. Dressing on right hip clean, dry, and intact. Patient A&O. VSS. Patient dressed. Denies the need to use the restroom at this time. Patient denies any further needs at this time. Patient taken downstairs to work with PT.
[2021-01-26 08:23] LABS: MEAN CELL VOLUME 93 fl (80.0-100.0); MEAN CORPUSCULAR HGB CONC 32 g/dl (33.0-37.0); MEAN PLATELET VOLUME 9.9 fl (7.4-10.4); PLATELET COUNT 300 K/mm3 (130-400); RED BLOOD COUNT 2.73 M/mm3 (4.20-5.60); REDCELL DISTRIBUTION WIDTH-CV 15.8 % (11.5-14.5)
[2021-01-26 08:28] LABS: HEMATOCRIT 25.4 % (42.0-52.0); HEMOGLOBIN 8.1 g/dl (13.5-18.0); MEAN CORPUSCULAR HEMOGLOBIN 30 pg (27.0-31.0)
[2021-01-26 08:32] LABS: ALBUMIN 2.6 gm/dL (3.4-4.8); BILIRUBIN,TOTAL 0.7 mg/dL (0.2-1.2); C-REACTIVE PROTEIN 4.56 mg/dL (0.00-0.50); CALCIUM 8.9 mg/dL (8.4-10.2); POTASSIUM 3.9 mmol/L (3.5-4.5); TOTAL PROTEIN 6.7 gm/dL (6.2-8.1)
[2021-01-26 09:03] LABS: BAND 4 % (0-10); EOSINOPHIL 1 % (0-4); LYMPHOCYTE 20 % (20.0-51.0); METAMYELOCYTE 3 % (0-0); MYELOCYTE 2 % (0-0); NEUTROPHILS 58 % (42.0-75.2)
[2021-01-26 09:04] LABS: PLATELET ESTIMATE NORMAL (NORMAL)
[2021-01-26 09:25] LABS: ERYTHROCYTE SEDIMENTATION RATE 115 mm/hr (0-30)
--- NOTE | 2021-01-26 12:40 | NUR ---
Follow-up visit; Patient doing well today and thanked [employer] for looking in on him and offering God's blessings.
[2021-01-26 15:45] VITALS: BP 107/53; PULSE 100; TEMP 98
--- NOTE | 2021-01-26 17:58 | NUR ---
Patient has had an ok day. Worked with PT/OT/ST. PRN pain meds given throughout shift. Patient currently lying in bed resting. MYRANDA hose and SCDs on. Patient denies any pain, discomfort, or further needs at this time. Call light in reach. VSS. Patient A&O. Fall precautions in place.
--- NOTE | 2021-01-26 18:46 | NUR ---
RECEIVED CHANGE OF SHIFT REPORT FROM DAY SHIFT NURSE.
--- NOTE | 2021-01-26 23:20 | NUR ---
PATIENT DENIES ANY NEEDS AT THIS TIME. TEDS TAKEN OFF, REFUSED SCD AT THIS TIME. VOIDING WITH NO PROBLEMS. BED ALARM ON WHEN IN BED WITH CALL LIGHT WITHIN REACH.
[2021-01-27 05:25] VITALS: BP 136/77; PULSE 98; TEMP 98.3
--- NOTE | 2021-01-27 06:53 | NUR ---
CHANGE OF SHIFT REPORT GIVEN TO DAY SHIFT NURSE, RAMIRO QUILES.
--- NOTE | 2021-01-27 07:40 | NUR ---
Scheduled medications given. Shift assessment preformed. No S/S of pain or discomfort at this time. Aquacell dressing placed on right hip incision, they are dry and intact. Patient mentioned wanting to have them changed soon. Will follow up. MYRANDA willard on. Patient dressed and ready for PT. Patient denies any further needs at this time. Call light in reach. Fall precautions in place. VSS. Patient A&O.
--- NOTE | 2021-01-27 13:12 | NUR ---
Admission QIM scores were reviewed by the team. Code of 5 chosen for oral hygiene was determined by team discussion to be the most usual performance before interventions for this patient during the assessment period. Code of 1 chosen for toilet hygiene was determined by team discussion to be the most usual performance for this patient during the assessment period. Code of 3 chosen for toileting transfers was determined by team discussion to be the most usual performance for this patient during the assessment period. Code of 7 chosen for shower/bathe self was determined by team discussion to be the most usual performance for this patient during the assessment period. Code of 5 chosen for upper body dressing was determined by team discussion to be the most usual performance for this patient during the assessment period. Code of 1 chosen for lower body dressing was determined by team discussion to be the most usual performance for this patient during the assessment period. Code of 1 chosen for putting on/taking off footwear was determined by team discussion to be the most usual performance for this patient during the assessment period. Code of 88 chosen for rolling left to right was determined by team discussion to be the most usual performance before interventions for this patient during the assessment period. Code of 3 chosen for sit to lying was determined by team discussion to be the most usual performance for this patient during the assessment period. Code of 3 chosen for lying to sitting on side of bed was determined by team discussion to be the most usual performance for this patient during the assessment period. Code of 3 for sit to stand was determined by team discussion to be the most usual performance for this patient during the assessment period. Code of 3 for chair/bed to chair transfers was determined by team discussion to be the most usual performance for this patient during the assessment period.--PD Zac
--- NOTE | 2021-01-27 16:11 | NUR ---
Network Relay Tester checked in with patient to follow up from weekend. Patient states things are going okay but he has a "long road".
[2021-01-27 17:34] VITALS: BP 122/65; PULSE 97; TEMP 98.6
--- NOTE | 2021-01-27 18:18 | NUR ---
Patient has had an ok day. Worked with PT/OT/ST this AM and into the afternoon. Currently resting in bed. SCD's and MYRANDA hose one. No s/s of pain or discomfort at this time. Patient denies any further needs. Call light in reach. Fall precautions in place. VSS. Patient A&O.
--- NOTE | 2021-01-27 19:24 | NUR ---
RECEIVED CHANGE OF SHIFT REPORT FROM DAY SHIFT NURSE. BED ALARM ON, CALL LIGHT WITHIN REACH. DENIES ANY NEEDS AT TIME OF REPORT.
--- NOTE | 2021-01-27 20:00 | NUR ---
PATIENT MAINTAINS NO WEIGHT TO RLE PER DR ORDER WITH TRANSFERS TO BSC/CHAIR. DENIES CHEST PAIN/SOA/NAUSEA CURRENTLY. DENIES NUMBNESS/TINGLING TO EXTREMITIES CURRENTLY.
[2021-01-28 04:46] VITALS: BP 130/71; PULSE 91; TEMP 98.4
--- NOTE | 2021-01-28 06:53 | NUR ---
Report received from KB Blue. Patient is sleeping. Call light and bedside table are within reach. Will continue to monitor patient throughout shift.
--- NOTE | 2021-01-28 07:02 | NUR ---
CHANGE OF SHIFT REPORT GIVEN TO DAY SHIFT NURSE, DULCE QUILES.
--- NOTE | 2021-01-28 09:18 | NUR ---
Per Dr. Hughes order, patient's aquacell needs to be changed every 7 days. This nurse will change it today.
--- NOTE | 2021-01-28 12:30 | NUR ---
Patient's is a bedside
--- NOTE | 2021-01-28 15:00 | NUR ---
Patient has completed all therapies for the day. Patient is resting comfortably in bed. Call light and bedside table are within reach. Will continue to monitor patient throughout shift.
--- NOTE | 2021-01-28 16:30 | NUR ---
Supervisor [employer] participated in family meeting with patient and his , Nova along with Leeann, IPR Director and PT/ST. Tentative plan is for discharge Tuesday and patient became tearful at this news. Patient will need hospital bed, bariatric commode, and wheelchair. SW to follow up with [facility]. JIMMY will also follow up with [facility] as services are recommended. Patient also receives antibiotic injections at home. JIMMY will follow up with [facility] about additional delivery if needed. JIMMY followed up with patient after family meeting and he advised he is feeling good about discharge date. JIMMY provided copy of team conference notes.
[2021-01-28 18:35] VITALS: BP 125/65; PULSE 106; TEMP 98.4
--- NOTE | 2021-01-29 04:13 | NUR ---
PT IS AWAKE, REQUESTS TO HAVE MYRANDA HOSE PUT BACK ON UNDER SCDs. DENIES ANY PAIN. PT WAS PREVIOUSLY ASLEEP ET WAS SNORING. USING URINAL TO VOID, CLEAR DARK YELLOW URINE. PT DENIES OTHER NEEDS. RESPIRATIONS UNLABORED. BED ALARM ON, CALL LIGHT WITHIN REACH.
[2021-01-29 04:19] VITALS: BP 136/85; PULSE 101; TEMP 98.2
--- NOTE | 2021-01-29 06:40 | NUR ---
Patient is sleeping in bed. Call light and bedside table are within reach. Will continue to monitor throughout shift.
--- NOTE | 2021-01-29 09:00 | NUR ---
Patient's is at bedside.
[2021-01-29] MEDS ORDERED: TYLENOL 325MG325 MG PO (10:07)
[2021-01-29] MEDS ORDERED: ROXICODONE 55 MG/TAB PO (10:08)
--- NOTE | 2021-01-29 14:30 | NUR ---
Patient has completed all therapies for the day and is resting in bed. Call light and bedside table are within reach.
--- NOTE | 2021-01-29 16:10 | NUR ---
Helpdesk Manager contacted [facility] and was advised they are out of hospital beds and wheelchairs at this time. SW then contacted [facility] and confirmed they had hospital beds in stock and can deliver to [place] tomorrow mid morning. JIMMY collaborated with PT/OT about patient's wheelchair size as [facility] only has 22 inch in stock. PT/OT advised this would work for patient. Order for wheelchair and hospital bed faxed to [facility]. Selma at [facility] advised they do not have bariatric commodes. JIMMY contacted [facility] and faxed referral information. SW will fax order tomorrow. JIMMY contacted [facility] and faxed clinical updates and script for continued IV antibiotic infusions. [facility] advised patient's antibiotics will ship tomorrow and arrive at patient's home Tuesday. Patient will receive tomorrow's antibiotic doses here prior to discharge. JIMMY received a phone call from Selma at [facility] who advised after contacted patient's insurance, [employer] it is not likely patient's hospital bed will be covered due to his diagnosis. Selma provided waiver form for patient to sign that states patient understands that if insurance does not cover the bed, the rental cost is $235 per month. JIMMY contacted patient's and provide the above updates, including cost of renting the hospital bed. SW them met with patient to provide the above updates and present waiver form. Patient verbalized understanding of waiver form and out of pocket cost for renting the hospital bed. Patient signed the waiver and JIMMY provided witness signature. JIMMY provided form to Selma at [facility]. Patient's hospital bed and wheelchair will be delivered to patient's home tomorrow morning.
[2021-01-29 17:41] VITALS: BP 120/51; PULSE 101; TEMP 98.4
--- NOTE | 2021-01-29 20:59 | NUR ---
PT UP IN WC AND ABOUT IN ROOM. MOD IN ROOM IN WC. NWB RLE. PT ABLE TO MANEUVER SELF BACK TO BED. WANTS TEDS HOSE LEFT ON. CALL LIGHT IN REACH.
[2021-01-30 05:53] VITALS: BP 127/55; PULSE 95; TEMP 98.1
--- NOTE | 2021-01-30 07:00 | NUR ---
Report received from [facility]. Pt in wheelchair at side of bed, denies needs, will continue to monitor.
--- NOTE | 2021-01-30 10:07 | NUR ---
Assessment charted. PT in bed and wheelchair independtly, able to get around well in wheelchair in room and hallway. PICC to PRISCILLA flushes well and good blood return. PRN pain med provided per request. Pt anticipating dishcarge today after lunch. Will continue to monitor.
--- NOTE | 2021-01-30 13:45 | NUR ---
Pt discharged at this time. Confirmed with pt and that home health manages PICC line and dressing changes and home health is set up per social work. Reviewed discharge packet, follow up appintmnents, pt left with all belongings, escorted out via w/c with all bleongings. to drive home, criteria met.
--- NOTE | 2021-01-30 15:52 | NUR ---
Human Resource Analyst contacted [facility] and faxed dishcarge orders. SW then faxed clinical updates and discharge information to [facility]. Patient's DME and antibiotics to be delievered to the home.
--- NOTE | 2021-02-03 15:08 | NUR ---
Discharge QIM scores were reviewed by the team. Code of 6 chosen for toileting transfers was determined by team discussion to be the most usual performance for this patient during the assessment period. Code of 5 chosen for shower/bathe self was determined by team discussion to be the most usual performance for this patient during the assessment period. Code of 6 chosen for lower body dressing was determined by team discussion to be the most usual performance for this patient during the assessment period. Code of 6 chosen for putting on/taking off footwear was determined by team discussion to be the most usual performance for this patient during the assessment period. Code of 6 for sit to stand was determined by team discussion to be the most usual performance for this patient during the assessment period. Code of 6 for chair/bed to chair transfers was determined by team discussion to be the most usual performance for this patient during the assessment period. Code of 6 chosen for walk 10 feet was determined by team discussion to be the most usual performance for this patient during the assessment period.--Leeann Bal,
== END 2021-01-30 13:45 | disposition home health service (06) | DRG 561 ==
PROVIDERS: Physician Assistant; ADMIT Internal Medicine
DX: S72.301D Unspecified fracture of shaft of right femur, subsequent encounter for closed fracture with routine healing (principal); R26.89 Other abnormalities of gait and mobility; K25.9 Gastric ulcer, unspecified as acute or chronic, without hemorrhage or perforation; G47.33 Obstructive sleep apnea (adult) (pediatric); D64.9 Anemia, unspecified; I10 Essential (primary) hypertension; E78.5 Hyperlipidemia, unspecified; R73.03 Prediabetes; N40.0 Benign prostatic hyperplasia without lower urinary tract symptoms; K21.9 Gastro-esophageal reflux disease without esophagitis; H55.01 Congenital nystagmus; E66.01 Morbid (severe) obesity due to excess calories; Z73.6 Limitation of activities due to disability; Z96.643 Presence of artificial hip joint, bilateral; Z91.19 Patient's noncompliance with other medical treatment and regimen; Z68.37 Body mass index [BMI] 37.0-37.9, adult; Z79.84 Long term (current) use of oral hypoglycemic drugs; Z79.82 Long term (current) use of aspirin; Z88.0 Allergy status to penicillin; Z79.899 Other long term (current) drug therapy; Z79.891 Long term (current) use of opiate analgesic; Y83.8 Other surgical procedures as the cause of abnormal reaction of the patient, or of later complication, without mention of misadventure at the time of the procedure; W08.XXXD Fall from other furniture, subsequent encounter; R70.0 Elevated erythrocyte sedimentation rate; R79.82 Elevated C-reactive protein (CRP)
CPT/HCPCS: 99222-AI; 99232-AI; 99239; A9284; J0696; J0878